=== PATIENT | female | born 1985 | race Hispanic/Latino ===

== ENCOUNTER 2017-11-17 23:15 | Inpatient (IN) | payer SELFPAY ==
[2017-11-17 23:16] VITALS: BP 115/63; PULSE 69; RESP 14; TEMP 36.5; O2SAT 98; BMI 29.2
[2017-11-18] VITALS (15 sets, daily range): BP systolic 107–130; BP diastolic 58–77; PULSE 55–87; RESP 15–18; TEMP 36.4–37.2; O2SAT 92–100; BMI 33.7
--- NOTE | 2017-11-18 | GALL_PTH ---
PATIENT: ASHLEE GOFF LOC: [facility]3 U#:[id number] AGE/SX: 32/F ROOM: [facility]314 RE11/18/[address]: Dr. Ludmila Ward MD : 1985 BED: 1 DIS: 11/20/2017 SPEC #: [id number] RECD: 11/19/17 14:37 STATUS: GLENN RELolis #: [id number] CHAU: 11/18/17 00:[address]: Te Adams DEPT: SURGICAL PATHOLOGY RECD BY: Ricki Thomason ENTERED: 11/19/17 14:37 SP TYPE: GALLBLADDE OTHR DR: Dr. Tasha Bustos, DO MD Dr. Kit Michelle MD Jodi Swihart, STANDARDS ENGINEER-C Tissues: Gallbladder, NOS Procedures: Surgery Specimen Level III Comments: @ Ordering doctor for SUIII edited from to @ by SANTIAGO at 11/19/17 1523 @ Submitting doctor edited from to @ by RGOOD at 11/19/17 1523 HEADER OPERATION: ERCP PRE-OP DIAGNOSIS: Obstructive jaundice; gallstone pancreatitis TISSUE SUBMITTED: Gallbladder MICROSCOPIC DIAGNOSIS Gallbladder: Chronic cholecystitis and cholelithiasis. SOFI:mary 11/22/17 MICROSCOPIC DESCRIPTION Slides are reviewed. GROSS DESCRIPTION Received is one container labeled with the patient's name and designated gallbladder. The specimen consists of a gallbladder measuring 13 cm in length and up to 4 cm in diameter. The external surface is pink-galindo, smooth and glistening for the most part. Focally it is granular, hemorrhagic and contains cautery artifact. The gallbladder contains a small amount of green-yellow mucoid bile and distended with multiple multifaceted greenish-yellow stones measuring in aggregate 9 x 8 x 3 cm and 0.3 to 1.5 in greatest dimension. The mucosa is bile-stained and without any mass lesions. The gallbladder wall measures up to 0.2 cm in thickness. Systems Development Consultant sections from the gallbladder and the cystic duct are submitted in one cassette. / SOFI:mary 11/19/17 TC:3 CPT: 76358
[2017-11-18 00:20] LABS: Bacteria 0 SEEN /hpf (None Seen); Mucous, Urine 0 SEEN /hpf (<or=2+); White Blood Cells 0 SEEN /hpf (0-5)
[2017-11-18] MEDS: Ketorolac 30 MG/ML Syringe IV (00:27)
[2017-11-18] MEDS: 0.9% Normal Saline 1,000 ML 1000 ML IV (00:27)
[2017-11-18 00:28] LABS: Absolute Lymphocyte Count 1.19 X10^3/ul (0.83-4.51); Absolute Neutrophil Count 9.9 X10^3/uL (2.0-7.7); Basophil# 0.02 X10^3/uL; Basophil% 0.2 % (0-1); Eosinophil# 0.03 X10^3/uL; Eosinophils% 0.3 % (0-5); Hematocrit 39.1 % (37-47); Hemoglobin 12.7 g/dl (12.0-15.0); Lymphocyte # 1.19 X10^3/ul (4.0); Mean Corp Hgb Conc 32.5 g/gl (32-36); Mean Corpuscular Hgb 24.7 pg (27.0-32.0); Mean Corpuscular Volume 75.9 fL (81-99); Mean Platelet Vol. 9.7 fl (6.2-12.0); Monocyte# 0.74 X10^3/uL; Monocyte% 6.2 % (0-10); Neutrophil # 9.87 X10^3/uL (2.7-7.7); Platelet Count 348 K/mm3 (150-450); RBC Distribution Width SD 42.8 fl (35.1-43.9); Red Blood Count 5.15 M/mm3 (4.2-5.4); White Blood Count 11.9 K/mm3 (4.4-11.0)
[2017-11-18] MEDS: proMETHazine 25 MG/ML Syringe 12.5 MG IV (00:28)
[2017-11-18 00:34] LABS: POSITIVE COUNT NO; POSITIVE DIFFERENTIAL NO; POSITIVE MORPHOLOGY NO
[2017-11-18 00:35] LABS: Internal QC Validated? YES +Cl - CLEAR BKGD; Pregnancy, Urine Negative Negative
[2017-11-18 00:42] LABS: Color, Urine Amber (Yellow); Glucose, Dipstick NEGATIVE (Normal); Ketone-Dipstick Negative (Negative); Leukocyte Esterase-Dipstick 25 /ul (Negative); Nitrite-Dipstick Negative (Negative); Occult Blood-Urine 250 /ul (Negative); Protein-Dipstick 30 mg/dl (Negative); Urine Bilirubin Dipstick Negative (Negative); Urine Clarity Sl Cldy (Clear); Urine Urobilinogen 1 mg/dl (Normal)
[2017-11-18 00:43] LABS: Red Blood Cells-Urine 50-100 SEEN /hpf (0-5); Squamous Epithelial Cells - UA 10-25 SEEN /hpf (5-10)
[2017-11-18 00:57] LABS: AST(SGOT) 668 U/L (15-37); Alanine Aminotransfer ALT/SGPT 493 U/L (13-56); Albumin, Serum 4.1 g/dL (3.2-5.0); Alkaline Phosphatase 131 U/L (45-117); Anion Gap 7 (5-15); BUN 12 mg/dL (7-18); BUN/Creat Ratio 11.8 RATIO (10-20); Calcium,Total 9.3 mg/dL (8.5-10.1); Chloride 102 mmol/L (98-107); Creatinine, Serum 1.02 mg/dL (0.55-1.02); EST Glomerular Filtration Rate 67 mL/min (>60); Est Glom Filt Rate - Afr Amer 81 mL/min (>60); Estimated Creatinine Clearance 69.01 ml/min; Globulin 4.2 g/dL (2.2-4.2); Glucose 107 mg/dL (74-106); Lipase 23877 U/L (73-393); Potassium 3.4 mmol/L (3.5-5.1); Protein, Total 8.3 g/dL (6.4-8.2); Sodium Level 139 mmol/L (136-145)
--- NOTE | 2017-11-18 01:11 | CT_ITS ---
STUDY: CT ABDOMEN AND PELVIS WITH CONTRAST REASON FOR EXAM: Female, 32 years old. Abdomen pain RADIATION DOSAGE (If Supplied By Facility): CTDIvol = ( 15.09 ) mGy, DLP = ( 1100.84 ) mGycm TECHNIQUE: Transaxial images were obtained from the dome of the diaphragm to the symphysis pubis without oral contrast. 100 ml of Isovue 300 contrast was administered. Sagittal and coronal images were reconstructed. Individualized dose optimization techniques were used for this CT. COMPARISON: None. FINDINGS: The visualized lung bases Demonstrate dependent atelectasis is more prominent on the right side. The visualized portions of the heart are within normal limits. Normal liver. There are multiple gallstones. Normal spleen. Normal pancreas. Normal bilateral adrenal glands. Normal right kidney. Normal left kidney. Normal visualized stomach. Normal small intestine. Normal colon. The appendix is visualized and appears normal. Normal abdominal aorta. Normal inferior vena cava. Normal retroperitoneum. Normal urinary bladder. Normal abdominal wall. Normal osseous structures. CT/Abdomen/Pelvis W IV Cont ONLY IMPRESSION: Cholelithiasis. Electronically Signed: Tommy Hutchins MD at 2:10 EDT Tel , Service support ,
--- NOTE | 2017-11-18 03:19 | PCM.HP.STD ---
Problem List (1) Acute pancreatitis Status: Acute History of Present Illness Date of Admission: 11/18/17 Chief Complaint: Abdominal pain The patient is a 32 year old F obese female with no significant medical history otherwise who presented with excruciating pain in his epigastric region. His pain started a day before his admission. His pain was gradual in onset and progressed to the point that she could not tolerate any longer. The pain does not radiate. The pain is aggravated with activity and improved with rest. She tried [place] without any relief. She thinks she did not get any relief because she vomited. Associated with her symptoms is nausea and vomiting. At the Emergency department CT of the abdomen and pelvis scan obtained showed cholelithiasis. She had a severely elevated lipase. Also her liver enzymes were severely abnormal. Of note, patient is known Sinhala speaking and history was obtained from her boyfriend. Past Medical History Allergies No Known Allergies Allergy (Verified 11/17/17 23:20) Home Medications: Ambulatory Orders Medication Instructions Recorded NK [NK] 11/18/17 Surgical History: no surgical history Psychiatric History: No pertinent psych hx Lives: Spouse/ Significant Other Smoking Status: Never smoker Tobacco Use: Non-smoker Alcohol: None Drugs: None - *Family History Maternal History Items: No pertinent history Paternal History Items: No pertinent history Review of Systems Constitutional: Reports: Chills Eyes: Denies: Blurred vision, Pain HEENT: Denies: Head Aches, Sinus Congestion, Sinus Drainage Cardiovascular: Denies: Chest Pain, Palpitations Respiratory: Denies: Cough, Shortness of breath at rest, Sputum production Gastrointestinal: Reports: Abdominal Pain, Nausea, Vomiting Genitourinary: Denies: Dysuria Musculoskeletal: Denies: Joint Pain, Joint Tenderness Skin: Denies: Rash, Wounds Neurological: Denies: Numbness, Tingling, Focal weakness Psychiatric: Denies: Anxiety, Depression, Homicidal Ideations, Suicidal Ideations Hematologic/ Lymphatic: Denies: Easy Bruising, Easy Bleeding VTE Information - Inpt Only VTE Present on Admission: No VTE Mechan Device Prophylaxis: None VTE Pharm Prophylaxis ordered?: No Patient Problems: Active and Suspected Problems Acute pancreatitis (Acute) - Physical Exam General: Alert, Oriented x3, Cooperative HEENT: Atraumatic, PERRLA, EOMI, Normocephalic Neck: Supple, No JVD, Negative Carotid Bruits Lungs: Clear to auscultation, Normal air movement Cardiovascular: Regular rate, No murmurs Abdomen: Bowel Sounds Present, Soft, Tender Extremities: No edema, Capillary Refill Less than 3 Seconds Skin: No rashes, No breakdown Musculoskeletal: No Tenderness to Palpation of Joints or Extremities Neurological: Cranial nerves II-XII grossly intact Psych/Mental Status: Normal Affect, Appropriate Vital Signs Temp Pulse Resp BP Pulse Ox 97.7 F L 69 18 115/63 98 11/17/17 23:16 11/17/17 23:16 11/18/17 02:37 11/17/17 23:16 11/18/17 02:37 Oxygen Delivery Method Room Air Weight: 77.111 kg Body Mass Index (BMI) 29.2 Laboratory Tests Past 24 Hrs 11/17/17 11/17/17 11/17/17 23:44 23:44 23:44 WBC 11.9 H RBC 5.15 Hgb 12.7 Hct 39.1 MCV 75.9 L MCH 24.7 L MCHC 32.5 RDW 16.0 H RDW Differential 42.8 Plt Count 348 MPV 9.7 Immature Gran % (Auto) 0.300 Neut % (Auto) 83.0 H Lymph % (Auto) 10.0 L Culbers[place] % (Auto) 6.2 Eos % (Auto) 0.3 Baso % (Auto) 0.2 Absolute Neuts (auto) 9.9 H Absolute Lymphs (auto) 1.19 Total Counted Not Reportable Sodium 139 Potassium 3.4 L Chloride 102 Carbon Dioxide 30.0 Anion Gap 7 BUN 12 Creatinine 1.02 Estim Creat Clear Calc 69.01 Est GFR (MDRD) Af Amer 81 Est GFR (MDRD) Non-Af 67 BUN/Creatinine Ratio 11.8 Glucose 107 H Calcium 9.3 Total Bilirubin 1.50 H AST 668 H ALT 493 H Alkaline Phosphatase 131 H Total Protein 8.3 H Albumin 4.1 Globulin 4.2 Albumin/Globulin Ratio 1.0 Lipase 88139 H Urine Color Urine Clarity Urine pH Ur Specific Atlas Urine Protein Urine Glucose (UA) Urine Ketones Urine Occult Blood Urine Nitrite Urine Bilirubin Urine Urobilinogen Ur Leukocyte Esterase Urine RBC Urine WBC Ur Squamous Epith Cells Urine Bacteria Urine Mucus Urine Test Negative 11/17/17 23:44 WBC RBC Hgb Hct MCV MCH MCHC RDW RDW Differential Plt Count MPV Immature Gran % (Auto) Neut % (Auto) Lymph % (Auto) Culberson % (Auto) Eos % (Auto) Baso % (Auto) Absolute Neuts (auto) Absolute Lymphs (auto) Total Counted Sodium Potassium Chloride Carbon Dioxide Anion Gap BUN Creatinine Estim Creat Clear Calc Est GFR (MDRD) Af Amer Est GFR (MDRD) Non-Af BUN/Creatinine Ratio Glucose Calcium Total Bilirubin AST ALT Alkaline Phosphatase Total Protein Albumin Globulin Albumin/Globulin Ratio Lipase Urine Color Yolanda Urine Clarity Sl Cldy Urine pH 8.0 Ur Specific Atlas 1.010 Urine Protein 30 H Urine Glucose (UA) NEGATIVE Urine Ketones Negative Urine Occult Blood 250 H Urine Nitrite Negative Urine Bilirubin Negative Urine Urobilinogen 1 H Ur Leukocyte Esterase 25 H Urine RBC 50-100 SEEN Urine WBC 0 SEEN Ur Squamous Epith Cells 10-25 SEEN Urine Bacteria 0 SEEN Urine Mucus 0 SEEN Urine Test Assessment/Plan All Active Problems Acute pancreatitis (Acute) The patient is a 32 year old F obese female with no significant medical history otherwise who presented with excruciating epigastric pain; and laboratory and radiographic evidence pointing towards acute pancreatitis likely gallstone in origin. Acute pancreatitis Lipase 23,877 Status post IV normal saline and IV pain medication at emergency department Patient started on lactated Ringer's infusion. N.p.o. for now Although CT scan showed gallstones will obtain ultrasound of her gallbladder to evaluate the biliary tree especially as she has elevated liver enzymes. Morphine and Zofran as needed ED reported talking to General Surgery. General surgery is interested in following up. Will consult general surgery. Fasting lipids ordered. Hypokalemia Mild hypokalemia with potassium of 3.4. Will replace with 20 mEq of IV potassium. DVT prophylaxis Not indicated because patient is a low risk Ambulation. Code Visit Inpatient E&M: 36761 Init Hosp L2
--- NOTE | 2017-11-18 03:21 | ED.DCSUM_ITS ---
- ER Visit Summary Date of Service: 11/18/17 Chief Complaint: abdominal pain History of Present Illness: The patient is a 32 F who presents with abdominal pain. It began about 10-12 hours ago. She describes as pressure-like. It is diffuse throughout her entire abdomen. She has also had nausea and vomiting. No diarrhea. No urinary symptoms. She is currently on her menstrual period. Physical Examination: Afebrile vital signs within normal limits Moist mucous membranes Heart regular rate and rhythm Lungs are clear Abdomen soft nondistended she has diffuse nonfocal tenderness without guarding without rebound Test Results: Labs are notable for white blood cell count 11.9. Total bilirubin 1.5. Alkaline phosphatase 131. ALT 493. AST 668. Lipase 23,877. UA shows blood but she is on her menstrual period. is negative. CT of the abdomen and pelvis shows cholelithiasis. Emergency Department Course and Treatment: Laboratory studies were obtained which are notable for pancreatitis with a lipase of greater than 23,000. She has elevation of her transaminases and mild elevations of alkaline phosphatase and total bilirubin. CT was obtained which showed cholelithiasis which raises concern for gallstone pancreatitis. I did speak to Dr. Howard and surgery will see the patient in consult. She was treated here with IV fluids Toradol and Phenergan. On reevaluation her pain is controlled unless she is moving. She is sleeping comfortably. She was discussed with the hospitalist and admitted. Treatment Plan: [] Disposition: Admit Impression: Cholelithiasis Pancreatitis This note was generated with [employer] dictation software. It may contain incorrect words, spelling, and punctuation that were not noted in review of the chart prior to signing ED Disposition - Plan for ED Patient: Chief Complaint: Abd Pain Referrals: Farnaz Wray, INTERNATIONAL TRADE MANAGER-C [Primary Care Provider] -
[2017-11-18] MEDS: 0.9% Normal Saline 1,000 ML 999 ML IV (03:34)
--- NOTE | 2017-11-18 04:51 | US_ITS ---
STUDY: ABDOMINAL ULTRASOUND - RIGHT UPPER QUADRANT REASON FOR VISIT: Female, 32 years old. Pancreatitis. TECHNIQUE: Ultrasound evaluation of the right upper quadrant was performed with real-time and static murphy-scale imaging. TECHNICAL QUALITY: Adequate. COMPARISON: Comparison is made with prior CT scan of the abdomen done earlier in the day. FINDINGS: Liver: The liver measures 17 cm. There is increased echogenicity consistent with fatty infiltration. Focal fatty sparing is seen in the periportal region. The bile ducts are within normal limits. There is hepatic color flow. The direction of portal flow is hepatopetal. There is no demonstrated mass lesion. Gallbladder: Normal distended gallbladder. The gallbladder wall measures 2.0 mm. There is a negative sonographic Loyola's sign. There is no pericholecystic fluid. There are multiple echogenic structures within the gallbladder, consistent with multiple gallstones. Common Bile Duct (C.B.D.): The common bile duct measures 5.8 mm. Pancreas: Normal size of the head, body and tail of the pancreas. There is normal echogenicity of the pancreas. There is no demonstrated pancreatic mass or cyst. Right Kidney: Normal size of the right kidney. The right kidney measures 10.2 cm x 5.8 cm x 5.3 cm. Normal renal cortex. The right cortex measures 1.8 cm. There is no demonstrated renal mass or cyst. There is no right hydronephrosis. US/Gallbladder IMPRESSION: Fatty infiltration of the liver with focal fatty sparing. Multiple gallstones. Electronically Signed: Rudy Torres MD at 9:50 EDT Tel [phone], Service support ,
[2017-11-18] MEDS: Lactated Ringers 1,000 ML 200 ML IV ×2 (05:27→12:04)
[2017-11-18 06:58] LABS: Absolute Lymphocyte Count 1.59 X10^3/ul (0.83-4.51); Absolute Neutrophil Count 4.5 X10^3/uL (2.0-7.7); Basophil# 0.01 X10^3/uL; Basophil% 0.2 % (0-1); Eosinophil# 0.01 X10^3/uL; Eosinophils% 0.2 % (0-5); Hemoglobin 10.8 g/dl (12.0-15.0); Lymphocyte # 1.59 X10^3/ul (4.0); Lymphocyte % 24.1 % (19-41); Mean Corp Hgb Conc 31.8 g/gl (32-36); Mean Corpuscular Hgb 24.5 pg (27.0-32.0); Mean Corpuscular Volume 77.1 fL (81-99); Mean Platelet Vol. 9.5 fl (6.2-12.0); Monocyte# 0.43 X10^3/uL; Monocyte% 6.5 % (0-10); Neutrophil # 4.54 X10^3/uL (2.7-7.7); Neutrophil % 68.8 % (47-70); Platelet Count 307 K/mm3 (150-450); RBC Distribution Width CV 16.1 % (11.6-14.6); RBC Distribution Width SD 43.3 fl (35.1-43.9); Red Blood Count 4.41 M/mm3 (4.2-5.4); White Blood Count 6.6 K/mm3 (4.4-11.0)
--- NOTE | 2017-11-18 07:00 | PCM.PROGNOTE ---
Patient Problems: Active and Suspected Problems Acute pancreatitis (Acute) Gallstone pancreatitis (Acute) Obstructive jaundice (Acute) Subjective: Patient is a 32-year-old female with no significant past medical history on no medications chronically who presented to the emergency department at [facility] on 11/18/2017 complaining of abdominal pain with onset approximately 10-12 hours before coming to the emergency room. Admitting vital signs were temperature 97.9, pulse rate 69, blood pressure 115/63, respiratory rate 14 and she was 94-100% saturated on room air. White blood cell count was 11.9 with 83% neutrophils. Hemoglobin was 12.7 and the MCV is 75.9 with an RDW of 16. Platelets were within normal limits. Potassium was low at 3.4. BUN and creatinine 12 and 1.02 respectively. AST was 668, ALT was 493, total bilirubin was 1.5 and the alk phos was 131. Lipase was 23,877. CT scan of the abdomen and pelvis showed cholelithiasis. She was admitted to the hospitalist service and general surgery was consulted. She has been afebrile since admission. Vital signs are stable. White blood cell count today is 6.6 with an unremarkable differential. Hemoglobin has decreased to 10.8 with hydration. Potassium is now normal at 3.6. LFTs are increasing and the total bilirubin is 1.6 with an AST of 850, ALT of 700 and an alkaline phosphatase of 125. Lipase has decreased from 23,877-10,435 today. She is complaining primarily of left upper quadrant today. She denies back pain. She has not had an emesis but does have some nausea. 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 - Physical Exam General: Alert, Cooperative, - - she looks to be in pain and quite ill HEENT: Atraumatic, Normocephalic Oral: Moist Mucosa Neck: Supple, No Nodes, Trachea Midline Lungs: Clear to auscultation, Diminished - in the bases Cardiovascular: Regular rate, Regular Rhythm, Normal S1, Normal S2, No murmurs, No Gallop Abdomen: Soft, Non-Distended, Hypoactive Bowel Sounds, Tender Extremities: No clubbing, No cyanosis, No edema, No Calf Tenderness Skin: No rashes, No breakdown Neurological: Cranial nerves II-XII grossly intact, Neuro grossly intact Vital Signs Temp Pulse Resp BP Pulse Ox 97.7 F L 67 15 130/65 H 100 11/17/17 23:16 11/18/17 04:34 11/18/17 04:34 11/18/17 03:30 11/18/17 04:34 Oxygen Delivery Method Room Air Weight: 196 lb 3.382 oz Body Mass Index (BMI) 33.7 Laboratory Tests Past 24 Hrs 11/18/17 11/18/17 06:24 06:24 WBC Pending RBC Pending Hgb Pending Hct Pending MCV Pending MCH Pending MCHC Pending RDW Pending RDW Differential Pending Plt Count Pending Neut % (Auto) Pending Absolute Neuts (auto) Pending Total Counted Pending Sodium Pending Potassium Pending Chloride Pending Carbon Dioxide Pending Anion Gap Pending BUN Pending Creatinine Pending Est GFR (MDRD) Af Amer Pending Est GFR (MDRD) Non-Af Pending BUN/Creatinine Ratio Pending Glucose Pending Calcium Pending Triglycerides Pending Cholesterol Pending LDL Cholesterol Pending VLDL Cholesterol Pending HDL Cholesterol Pending Medical Necessity - Tobacco Use Smoking Status: Never smoker Tobacco Use: Non-smoker Assessment/Plan All Active Problems Acute pancreatitis (Acute) Gallstone pancreatitis (Acute) Obstructive jaundice (Acute) Impressions 1. Gallstone pancreatitis with cholangitis and suspected choledocholithiasis. 2. Obesity Discussed with Dr. Howard. The plan is for her to go to surgery today with Dr. Adams for an ERCP and to have laparoscopic cholecystectomy with Dr. Howard on 11/19/2017. In light of cholangitis I have started Zosyn. Repeat lab in the a.m.
[2017-11-18 07:09] LABS: POSITIVE COUNT NO; POSITIVE DIFFERENTIAL NO; POSITIVE MORPHOLOGY NO
--- NOTE | 2017-11-18 07:12 | PN_ITS ---
Patient Problems: Active and Suspected Problems Acute pancreatitis (Acute) Gallstone pancreatitis (Acute) Obstructive jaundice (Acute) Subjective: Patient is a 32-year-old female with no significant past medical history on no medications chronically who presented to the emergency department at [facility] on 11/18/2017 complaining of abdominal pain with onset approximately 10-12 hours before coming to the emergency room. Admitting vital signs were temperature 97.9, pulse rate 69, blood pressure 115/63, respiratory rate 14 and she was 94-100% saturated on room air. White blood cell count was 11.9 with 83% neutrophils. Hemoglobin was 12.7 and the MCV is 75.9 with an RDW of 16. Platelets were within normal limits. Potassium was low at 3.4. BUN and creatinine 12 and 1.02 respectively. AST was 668, ALT was 493, total bilirubin was 1.5 and the alk phos was 131. Lipase was 23,877. CT scan of the abdomen and pelvis showed cholelithiasis. She was admitted to the hospitalist service and general surgery was consulted. She has been afebrile since admission. Vital signs are stable. White blood cell count today is 6.6 with an unremarkable differential. Hemoglobin has decreased to 10.8 with hydration. Potassium is now normal at 3.6. LFTs are increasing and the total bilirubin is 1.6 with an AST of 850, ALT of 700 and an alkaline phosphatase of 125. Lipase has decreased from 23,877-10, 435 today. She is complaining primarily of left upper quadrant today. She denies back pain. She has not had an emesis but does have some nausea. 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 - Physical Exam General: Alert, Cooperative, - - she looks to be in pain and quite ill HEENT: Atraumatic, Normocephalic Oral: Moist Mucosa Neck: Supple, No Nodes, Trachea Midline Lungs: Clear to auscultation, Diminished - in the bases Cardiovascular: Regular rate, Regular Rhythm, Normal S1, Normal S2, No murmurs, No Gallop Abdomen: Soft, Non-Distended, Hypoactive Bowel Sounds, Tender Extremities: No clubbing, No cyanosis, No edema, No Calf Tenderness Skin: No rashes, No breakdown Neurological: Cranial nerves II-XII grossly intact, Neuro grossly intact Vital Signs Temp Pulse Resp BP Pulse Ox 97.7 F L 67 15 130/65 H 100 11/17/17 23:16 11/18/17 04:34 11/18/17 04:34 11/18/17 03:30 11/18/17 04:34 Oxygen Delivery Method Room Air Weight: 196 lb 3.382 oz Body Mass Index (BMI) 33.7 Laboratory Tests Past 24 Hrs 11/18/17 11/18/17 06:24 06:24 WBC Pending RBC Pending Hgb Pending Hct Pending MCV Pending MCH Pending MCHC Pending RDW Pending RDW Differential Pending Plt Count Pending Neut % (Auto) Pending Absolute Neuts (auto) Pending Total Counted Pending Sodium Pending Potassium Pending Chloride Pending Carbon Dioxide Pending Anion Gap Pending BUN Pending Creatinine Pending Est GFR (MDRD) Af Amer Pending Est GFR (MDRD) Non-Af Pending BUN/Creatinine Ratio Pending Glucose Pending Calcium Pending Triglycerides Pending Cholesterol Pending LDL Cholesterol Pending VLDL Cholesterol Pending HDL Cholesterol Pending Medical Necessity - Tobacco Use Smoking Status: Never smoker Tobacco Use: Non-smoker Assessment/Plan All Active Problems Acute pancreatitis (Acute) Gallstone pancreatitis (Acute) Obstructive jaundice (Acute) Impressions 1. Gallstone pancreatitis with cholangitis and suspected choledocholithiasis. 2. Obesity Discussed with Dr. Howard. The plan is for her to go to surgery today with Dr. Adams for an ERCP and to have laparoscopic cholecystectomy with Dr. Howard on 11/19/2017. In light of cholangitis I have started Zosyn. Repeat lab in the a.m.
[2017-11-18 07:14] LABS: Anion Gap 8 (5-15); BUN 11 mg/dL (7-18); Calcium,Total 7.9 mg/dL (8.5-10.1); Chloride 107 mmol/L (98-107); Cholesterol 150 mg/dL (200); Creatinine, Serum 0.79 mg/dL (0.55-1.02); EST Glomerular Filtration Rate 91 mL/min (>60); Est Glom Filt Rate - Afr Amer 110 mL/min (>60); Glucose 103 mg/dL (74-106); High Density Lipoprotein 39 mg/dL; Potassium 3.6 mmol/L (3.5-5.1); Sodium Level 142 mmol/L (136-145); Triglycerides 89 mg/dL; Very Low Density Lipoprotein 18 mg/dL (5-40)
[2017-11-18] MEDS: 0.9% NaCl Peripheral Flush Adult/Peds IV ×2 (07:54→15:41)
[2017-11-18] MEDS: Morphine 2 MG/ML Syringe IV ×3 (07:54→20:43)
--- NOTE | 2017-11-18 08:33 | CON.PCM_ITS ---
Problem List (1) Acute pancreatitis Status: Acute Qualifiers: Pancreatitis type: biliary Reason for Consult Date of Consultation: 11/18/17 Reason for Consultation: Acute pancreatitis. Epigastric pain. History of Present Illness: The patient is a 32 year old F who presents with 1 day history of worsening epigastric pain, nausea, vomiting. Patient speaks Bulgarian only. Her translated our visit. He speaks fluent Croatian. Per , patient had a similar abdominal pain approximately 1 1/2 months ago. Discomfort resolved on its own and patient never sought treatment. Patient noted pain returned yesterday approximately 15 minutes after eating around 1300. She notes the pain was followed by nausea and vomiting. Patient denies change in bowel habits. She denies history of gallbladder disease. Patient denies previous abdominal surgeries. She has a 8 month old vaginally without complications during delivery. Patient denies previous myocardial infarction, stroke, blood clots. She denies being seen previously by a technical aid. She does not take any medication on a routine basis. Patient had a CT scan of the ab/pel which demonstrated cholelithiasis. Normal pancreas. Gallbladder ultrasound obtained today demonstrated multiple gallstones and liver infiltration of the liver. Normal pancreas. [place] [address]286 on admission, 11/17. Total bilirubin was 1.50, AST 668 , ALT 493, Alk Phos 131. Today, 11/18[place] [address]. Total bilirubin is 1.60, AST 850, ALT 700, Alk Phos 125. Past Medical History Allergies No Known Allergies Allergy (Verified 11/17/17 23:20) Home Medications: Ambulatory Orders Medication Instructions Recorded NK [NK] 11/18/17 Surgical History: no surgical history Psychiatric History: No pertinent psych hx SOCIAL SERVICES MANAGER History: No pertinent SOCIAL SERVICES MANAGER history Lives: Spouse/ Significant Other Smoking Status: Never smoker Tobacco Use: Non-smoker Alcohol: None Drugs: None - *Family History Maternal History Items: No pertinent history Paternal History Items: No pertinent history Review of Systems Constitutional: Reports: Anorexia, Malaise, Fatigue HEENT: Denies: Head Aches, Sinus Congestion, Sinus Drainage Cardiovascular: Denies: Chest Pain, Palpitations Respiratory: Reports: Shortness of Breath. Denies: Cough, Shortness of breath at rest, Sputum production Gastrointestinal: Reports: Abdominal Pain, Nausea, Vomiting. Denies: Constipation, Diarrhea, Hematemesis, Hematochezia, Melena Genitourinary: Reports: Dysuria, Urgency Musculoskeletal: Denies: Joint Pain, Joint Tenderness Skin: Denies: Rash, Wounds Neurological: Denies: Numbness, Tingling, Focal weakness Psychiatric: Denies: Anxiety, Depression, Homicidal Ideations, Suicidal Ideations Hematologic/ Lymphatic: Denies: Easy Bruising, Easy Bleeding Patient Problems: Active and Suspected Problems Acute pancreatitis (Acute) - Physical Exam General: Alert, Oriented x3, Cooperative, - - Speaks Bulgarian only HEENT: Atraumatic, PERRLA, EOMI, Normocephalic Neck: Supple, No JVD, Negative Carotid Bruits Lungs: Clear to auscultation, Normal air movement Cardiovascular: Regular rate, No murmurs Abdomen: Soft, Hypoactive Bowel Sounds, Distended - slightly, Tender - epigastric, LUQ, RUQ Extremities: No edema, Capillary Refill Less than 3 Seconds Skin: No rashes, No breakdown Musculoskeletal: No Tenderness to Palpation of Joints or Extremities Neurological: Neuro grossly intact Psych/Mental Status: Normal Affect, Appropriate Vital Signs Temp Pulse Resp BP Pulse Ox 97.7 F L 67 15 130/65 H 96 11/17/17 23:16 11/18/17 04:34 11/18/17 04:34 11/18/17 03:30 11/18/17 07:18 Oxygen Delivery Method Room Air Weight: 196 lb 3.382 oz Body Mass Index (BMI) 33.7 Intake and Output for Last 24 Hours 11/16/17 11/17/17 11/18/17 23:59 23:59 23:59 Intake Total 446 / 446 Balance 446 / 446 Laboratory Tests Past 24 Hrs 11/18/17 11/18/17 06:24 06:24 WBC 6.6 RBC 4.41 Hgb 10.8 L Hct 34.0 L MCV 77.1 L MCH 24.5 L MCHC 31.8 L RDW 16.1 H RDW Differential 43.3 Plt Count 307 MPV 9.5 Immature Gran % (Auto) 0.200 Neut % (Auto) 68.8 Lymph % (Auto) 24.1 [place] % (Auto) 6.5 Eos % (Auto) 0.2 Baso % (Auto) 0.2 Absolute Neuts (auto) 4.5 Absolute Lymphs (auto) 1.59 Total Counted Not Reportable Sodium 142 Potassium 3.6 Chloride 107 Carbon Dioxide 27.0 Anion Gap 8 BUN 11 Creatinine 0.79 Estim Creat Clear Calc 89.10 Est GFR (MDRD) Af Amer 110 Est GFR (MDRD) Non-Af 91 BUN/Creatinine Ratio 14.0 Glucose 103 Calcium 7.9 L Triglycerides 89 Cholesterol 150 LDL Cholesterol 93 VLDL Cholesterol 18 HDL Cholesterol 39 L Assessment/Plan All Active Problems Acute pancreatitis (Acute) I have been consulted in conjunction with Dr. Howard Impression: Acute pancreatitis. Cholelithiasis. Epigastric pain. Elevated lipase and liver enzymes. UTI Plan: Patient was discussed with Dr. Howard. Dr. Adams has also been asked to see the patient to perform an ERCP today. Dr. Howard will plan to perform a laparoscopic cholecystectomy. Dr. Howard explained the procedure details, risks and benefits of the procedure. Patient and his have had the opportunity to ask and have questions answered. Patient verbally understands and agrees with the plan. She desires to proceed with the proposed procedures. Thank you for allowing me to participate in this patient's care. My recommendations will be available via electronic medical records. Code Visit Office Visits / Consults: [id number] IP Consult L3
[2017-11-18] MEDS: Piperacil/Tazobactam 3.375 GM/50 ML ML IV ×3 (08:45→21:52)
[2017-11-18 09:17] LABS: AST(SGOT) 850 U/L (15-37); Alanine Aminotransfer ALT/SGPT 700 U/L (13-56); Albumin, Serum 3.2 g/dL (3.2-5.0); Alkaline Phosphatase 125 U/L (45-117); Globulin 3.5 g/dL (2.2-4.2); Lipase 10435 U/L (73-393); Protein, Total 6.7 g/dL (6.4-8.2)
--- NOTE | 2017-11-18 09:58 | PN.SURG_ITS ---
Patient Problems: Active and Suspected Problems Acute pancreatitis (Acute) Subjective: Patient is having some improvement with her abdominal pain. She does report some left upper quadrant abdominal pain at this time. - Physical Exam General: Alert, Oriented x3, Cooperative, No apparent distress HEENT: Atraumatic Lungs: Normal air movement Cardiovascular: Regular rate, Regular Rhythm Abdomen: Soft, Non-Distended, Tender - Tender in the epigastric and left upper quadrant Neurological: Cranial nerves II-XII grossly intact Vital Signs Temp Pulse Resp BP Pulse Ox 97.6 F L 67 16 117/58 L 97 11/18/17 07:50 11/18/17 07:50 11/18/17 07:50 11/18/17 07:50 11/18/17 07:50 Oxygen Delivery Method Room Air Weight: 196 lb 3.382 oz Body Mass Index (BMI) 33.7 Intake and Output for Last 24 Hours 11/16/17 11/17/17 11/18/17 23:59 23:59 23:59 Intake Total 446 / 446 Balance 446 / 446 Laboratory Tests Past 24 Hrs 11/18/17 11/18/17 11/18/17 06:24 06:24 06:24 WBC 6.6 RBC 4.41 Hgb 10.8 L Hct 34.0 L MCV 77.1 L MCH 24.5 L MCHC 31.8 L RDW 16.1 H RDW Differential 43.3 Plt Count 307 MPV 9.5 Immature Gran % (Auto) 0.200 Neut % (Auto) 68.8 Lymph % (Auto) 24.1 [place] % (Auto) 6.5 Eos % (Auto) 0.2 Baso % (Auto) 0.2 Absolute Neuts (auto) 4.5 Absolute Lymphs (auto) 1.59 Total Counted Not Reportable Sodium 142 Potassium 3.6 Chloride 107 Carbon Dioxide 27.0 Anion Gap 8 BUN 11 Creatinine 0.79 Estim Creat Clear Calc 89.10 Est GFR (MDRD) Af Amer 110 Est GFR (MDRD) Non-Af 91 BUN/Creatinine Ratio 14.0 Glucose 103 Calcium 7.9 L Total Bilirubin 1.60 H Direct Bilirubin 1.20 H AST 850 H ALT 700 H Alkaline Phosphatase 125 H Total Protein 6.7 Albumin 3.2 Globulin 3.5 Triglycerides 89 Cholesterol 150 LDL Cholesterol 93 VLDL Cholesterol 18 HDL Cholesterol 39 L Lipase 39950 H Clinical Impression(s) from Imaging Studies Abdomen/Pelvis CT 11/18/17 01:11 IMPRESSION: Cholelithiasis. Electronically Signed: Tommy Hutchins MD at 2:10 EDT Tel , Service support , Gallbladder Ultrasound 11/18/17 04:51 IMPRESSION: Fatty infiltration of the liver with focal fatty sparing. Multiple gallstones. Electronically Signed: Rudy Torres MD at 9:50 EDT Tel [phone], Service support , Medical Necessity - Tobacco Use Smoking Status: Never smoker Tobacco Use: Non-smoker Assessment/Plan All Active Problems Acute pancreatitis (Acute) 32-year-old female with acute pancreatitis, likely choledocholithiasis 1. Patient has gallstone pancreatitis and likely choledocholithiasis. The patient's liver enzymes have increased from her last draw. I do recommend ERCP for ductal clearance before laparoscopic cholecystectomy. 2. I discussed ERCP in detail with the patient. I discussed the risks including but not limited to bleeding, infection, perforation of the bile duct or bowels, worsening of the pancreatitis. I also discussed the possibility of having to place a stent. The patient understands and is willing to proceed. Te Adams MD Pager: [facility] [address] [place] [address], [address] [place] [address] Office:
--- NOTE | 2017-11-18 11:05 | RAD_ITS ---
STUDY: ERCP. REASON FOR EXAM: Female, 32 years old. History of acute pancreatitis. FLUOROSCOPY TIME (if supplied): (5:19) minutes/seconds TECHNIQUE: An ERCP was performed by the surgeon. Imaging was provided. COMPARISON: None. FINDINGS: There is evidence of gallstones. Contrast is seen within the common bile duct. A biliary stent was placed. RAD/ERCP Biliary Only IMPRESSION: Gallstones. Placement of a biliary stent. Electronically Signed: Rudy Torres MD at 14:53 EDT Tel [phone], Service support ,
--- NOTE | 2017-11-18 11:43 | CASEMGMT ---
CM INITIAL ASSESSMENT: Patient asleep at this time. Patient's boyfriend is at bedside and answers questions. Home: Patient lives in a two story home, on the upstairs floor. She lives with her boyfriend and child. HHS/Aides: Denies. Patient is independent. She sometimes drives. DME: Denies Home Oxygen: Denies Pharmacy: [facility] in [facility] Advance Directives: Denies PCP: Farnaz Wray at [facility] Specialists: Denies Patient does not have insurance at this time. She has completed Medicaid application at bedside. Her boyfriend states that she just needs to sign it. Social work notified and will follow-up with patient. DC Plan: Home, no needs anticipated. CM will continue to follow for safe and effective discharge planning.
--- NOTE | 2017-11-18 12:22 | EKG12_ITS ---
Test Reason : Blood Pressure : / mmHG Vent. Rate : 071 BPM Atrial Rate : 071 BPM P-R Int : 152 ms QRS Dur : 102 ms QT Int : 404 ms P-R-T Axes : 059 084 051 degrees QTc Int : 439 ms Normal sinus rhythm Normal ECG Confirmed by WALLACE SCHAEFER, PATTI ([id number]), editorial specialist DOE LUJAN ([id number]) on 11/26/2017 1:53:57 PM Referred By: KITE Confirmed By:PATTI GONSALEZ MD
--- NOTE | 2017-11-18 12:45 | NURSING ---
REPORT CALLED TO [facility] FOR ERCP.
--- NOTE | 2017-11-18 13:28 | CASEMGMT ---
Social Work Note RN CHRIS Lopez updated this worker that pt is self pay and has a Medicaid Application in her room. ALLEN placed a call to Celi in PFS. Celi states that she saw pt this morning and provided pt and her boyfriend with Medicaid Application. Celi states that pt has to sign the Medicaid Application and she will be in to see pt later this afternoon to get completed Medicaid Application. ALLEN attempted to see pt to follow up on self pay status and to provide resources to pt. Pt currently off floor. ALLEN will follow up with pt later today as time allows. Debi Ashraf NANOTECHNOLOGY ENGINEERING TECHNOLOGIST, VICTIM ADVOCATE
--- NOTE | 2017-11-18 14:19 | PCM.OPRPT ---
Problem List (1) Gallstone pancreatitis Status: Acute (2) Obstructive jaundice Status: Acute Report of Operation Date of Procedure: 11/18/17 Pre-Operative Diagnosis: Gallstone pancreatitis and obstructive jaundice Post-Operative Diagnosis: Same Surgery/Procedure Performed:: ERCP with sphincterotomy and stent placement Specimen's removed: None Description of Procedure: After describing the risks of the procedure as well as the procedure in detail informed consent was obtained. Patient was brought to the operating room and general anesthesia was induced. The patient was then placed in a semi-prone position. Next, the side-viewing endoscope was placed into the mouth and down into the stomach and advanced into the duodenum. The ampulla was located. There was no bile in the stomach or duodenum. A sphinctertome was used to cannulate the common bile duct and location was confirmed on fluoroscopy. The guidewire was placed in the common bile duct and using sphincterotome and electrocautery a sphincterotomy was performed. Hemostasis was good. Next the sphincterotome was removed leaving the guidewire in the common bile duct. A balloon was then introduced over the guidewire and the common bile duct and several sweeps were performed. There appeared to be a small filling defect in the distal common bile duct. The trapezoid basket was placed into the common bile duct and several sweeps were performed but no stone was removed. As there appeared to be an obstruction at the beginning of the case but I was not able to remove an obvious stone I decided to place a stent. I placed a 7 Turkish 7 cm stent over the guidewire and into the common bile duct and this was deployed under fluoroscopy. There is good flow of bile through the stent at the end of the case. The guidewire was removed. The side-viewing scope was then withdrawn back into the stomach and the stomach was suctioned. Next, the scope was removed. The patient was taken to PACU in stable condition. The patient tolerated the procedure well.
--- NOTE | 2017-11-18 14:23 | PN_ITS ---
Progress Note I performed an ERCP on the patient. There was no flow of bile into the duodenum or stomach at the beginning the case. During the cholangiogram is unsure if there was a small filling defect or if this was a bubble in the common bile duct. I performed several balloon sweeps and several trapezoid basket sweeps but an obvious stone was not removed. As I was not able to see an obvious stone being removed and I do believe the duct was obstructed at the beginning of the case I decided to place a stent. I placed a 7 cm x 7 Uzbek stent in the common bile duct. I plan to allow the patient had clears overnight and make her n.p.o. after midnight. Dr. Howard plans for laparoscopic cholecystectomy tomorrow. I will bring the patient back in 4-6 weeks for a follow-up ERCP with stent removal and recheck of her duct for any stones. Te Adams MD Pager: [facility] [address] [place] [address] [address] [place] [address] Office:
--- NOTE | 2017-11-18 15:16 | CASEMGMT ---
Social Work Note SW once again attempted to see pt. Pt still off floor for procedure. Pt has guest in room at this time but is soundly sleeping. SW left on pt's table HCAP application, [place] [id number], [facility] clinic, and prescription assistance information. SW will check back with pt tomorrow to review resources available for pt. Debi Ashraf SIGN LANGUAGE INTERPRETER, SUPERINTENDENT OPERATING
[2017-11-18] MEDS: BENZOCAINE/MENTHOL 1 LOZENGE MUCOUS MEM (22:37)
[2017-11-19] VITALS (15 sets, daily range): BP systolic 118–143; BP diastolic 70–85; PULSE 50–65; RESP 16–18; TEMP 36.5–37.7; O2SAT 88–99; BMI 33.7
[2017-11-19] MEDS: Morphine 2 MG/ML Syringe IV ×4 (00:20→22:11)
[2017-11-19] MEDS: proMETHazine 25 MG/ML Syringe 12.5 MG IV (02:05)
[2017-11-19] MEDS: Piperacil/Tazobactam 3.375 GM/50 ML ML IV ×3 (06:09→22:11)
[2017-11-19 06:49] LABS: Absolute Lymphocyte Count 1.79 X10^3/ul (0.83-4.51); Absolute Neutrophil Count 4.6 X10^3/uL (2.0-7.7); Basophil# 0.01 X10^3/uL; Basophil% 0.1 % (0-1); Eosinophil# 0.05 X10^3/uL; Eosinophils% 0.7 % (0-5); Hematocrit 32.6 % (37-47); Hemoglobin 10.3 g/dl (12.0-15.0); Lymphocyte # 1.79 X10^3/ul (4.0); Lymphocyte % 26.6 % (19-41); Mean Corp Hgb Conc 31.6 g/gl (32-36); Mean Corpuscular Hgb 24.7 pg (27.0-32.0); Mean Corpuscular Volume 78.2 fL (81-99); Mean Platelet Vol. 9.7 fl (6.2-12.0); Monocyte# 0.27 X10^3/uL; Neutrophil # 4.59 X10^3/uL (2.7-7.7); Neutrophil % 68.5 % (47-70); Platelet Count 269 K/mm3 (150-450); RBC Distribution Width CV 16.9 % (11.6-14.6); RBC Distribution Width SD 46.9 fl (35.1-43.9); Red Blood Count 4.17 M/mm3 (4.2-5.4); White Blood Count 6.7 K/mm3 (4.4-11.0)
[2017-11-19 06:51] LABS: POSITIVE COUNT NO; POSITIVE DIFFERENTIAL NO; POSITIVE MORPHOLOGY NO
[2017-11-19 07:06] LABS: ALB/GLOB Ratio 0.8 RATIO (0.9-2.4); AST(SGOT) 441 U/L (15-37); Alanine Aminotransfer ALT/SGPT 729 U/L (13-56); Albumin, Serum 2.8 g/dL (3.2-5.0); Alkaline Phosphatase 131 U/L (45-117); Anion Gap 7 (5-15); BUN 10 mg/dL (7-18); BUN/Creat Ratio 14.2 RATIO (10-20); Calcium,Total 7.5 mg/dL (8.5-10.1); Chloride 111 mmol/L (98-107); EST Glomerular Filtration Rate 103 mL/min (>60); Est Glom Filt Rate - Afr Amer 125 mL/min (>60); Estimated Creatinine Clearance 100.55 ml/min; Globulin 3.3 g/dL (2.2-4.2); Glucose 88 mg/dL (74-106); Potassium 3.6 mmol/L (3.5-5.1); Protein, Total 6.1 g/dL (6.4-8.2); Sodium Level 141 mmol/L (136-145)
--- NOTE | 2017-11-19 08:31 | NURSING ---
REPORT CALLED TO JENNIFER PASTRANA IN [facility] READY FOR TRANSPORT VIA BED. FAMILY AT BEDSIDE.
--- NOTE | 2017-11-19 09:56 | PCM.OPRPT ---
Problem List (1) Gallstone pancreatitis Status: Acute Report of Operation Date of Procedure: 11/18/17 Pre-Operative Diagnosis: Gallstone pancreatitis and obstructive jaundice Post-Operative Diagnosis: Same Surgery/Procedure Performed:: Laparoscopic cholecystectomy Type of Anesthesia:: General Anesthesiologist: Khari Garza Specimen's removed: Gallbladder Description of Procedure: Patient was brought into the operating room placed in supine position under excellent general trach intubation the abdomen was sterilely prepped draped in usual fashion. Local was injected intraumbilically a curvilinear incision was made dissection was carried down the fascia the fascia grasped with Schuyler varies needle was placed inside the abdomen the abdomen was insufflated 15 torr. A 10/12 trocar was placed without difficulty. Patient placed in the head up and rotated to the left a subxiphoid #5 trocar was placed. Inferior to this another #5 trocar was placed and laterally a #5 trocar was placed. These were all lysed under direct visualization without injury to underlying structures. Fundus of the gallbladder was grasped retracted in cephalad direction. Cystic artery was anterior I dissected it free place hemoclips proximal and distally ligated the artery deliver the cystic duct from a significant amount of edema place hemoclips proximal and distally ligated the duct to the liver the gallbladder from the liver bed with use of electrocautery there was one small posterior cystic branch of the artery which I clipped and I had excellent hemostasis. Placed a specimen specimen bag delivered through the umbilical port without difficulty. Irrigated the right upper quadrant good hemostasis was noted. The trochars under direct visualization good hemostasis was noted. Close the fascia the umbilical port with a running suture of 0 Vicryl. Skin incisions were closed with a particular stitches of 4-0 Monocryl. Steri-Strips are applied sterile dressings were applied and the patient tolerated the procedure well. - Admit VTE Documentation VTE Present on Admission: No VTE Mechan Device Prophylaxis: SCD's VTE Pharm Prophylaxis ordered?: No Reason prophylaxis not ordered:: Treatment Not Indicated
--- NOTE | 2017-11-19 10:32 | PCM.PROGNOTE ---
Patient Problems: Active and Suspected Problems Acute pancreatitis (Acute) Gallstone pancreatitis (Acute) Obstructive jaundice (Acute) Subjective: Patient is a 32-year-old female with no significant past medical history on no medications chronically who presented to the emergency department at [facility] on 11/18/2017 complaining of abdominal pain with onset approximately 10-12 hours before coming to the emergency room. She was diagnosed with gallstone pancreatitis and admitted to the hospital. LFTs were abnormal and cholangitis secondary to probable choledocholithiasis was suspected. She was started on Zosyn. On 11/18/2017 she had an ERCP with sphincterotomy by Dr. Adams however no stone was obtained and he placed a stent. She was taken to surgery on 11/19/2017 for a laparoscopic cholecystectomy by Dr. Howard. Afebrile since admission. Vital signs stable. White blood cell count today is 6.7 with an unremarkable differential. Hemoglobin is 10.3 with an MCV of 78.2 and an RDW of 16.9. Electrolytes, BUN and creatinine are within normal. Bilirubin is within normal limits today however the AST, ALT and alkaline phosphatase remain elevated. Continues to c/o pain worse on the left side. Objective: PHYSICAL EXAM: GENERAL: alert, oriented X 3, Cooperative, still looks ill and in pain ORAL: moist mucosa, no mucosal lesions NECK: No JVD, supple, trachea midline LUNGS: CTA, symmetric chest expansion....diminished in the bases because will not take deep breaths HEART: RRR, Normal S1 and S2, no rub, no gallop ABDOMEN: soft, tender in the upper abd BL, ND, BS present but hypoactive, no guarding with palpation EXTREMITIES: no edema, no cyanosis, no calf tenderness SKIN: No rashes, no breakdown NEUROLOGIC: no focal neurologic deficits PSYCH: appropriate, normal affect, pleasant - Physical Exam Vital Signs Temp Pulse Resp BP Pulse Ox 98.3 F 62 16 125/70 H 99 11/19/17 08:17 11/19/17 08:17 11/19/17 08:17 11/19/17 08:17 11/19/17 08:17 Oxygen Flow Rate (L/min) 2 Oxygen Delivery Method Nasal Cannula Weight: 196 lb 3.382 oz Body Mass Index (BMI) 33.7 Intake and Output for Last 24 Hours 11/17/17 11/18/17 11/19/17 23:59 23:59 23:59 Intake Total 2640 / 2640 1982 Output Total 1200 / 1200 600 / 600 Balance 1440 / 1440 1383 / 1383 Laboratory Tests Past 24 Hrs 11/19/17 11/19/17 05:55 05:55 WBC 6.7 RBC 4.17 L Hgb 10.3 L Hct 32.6 L MCV 78.2 L MCH 24.7 L MCHC 31.6 L RDW 16.9 H RDW Differential 46.9 H Plt Count 269 MPV 9.7 Immature Gran % (Auto) 0.100 Neut % (Auto) 68.5 Lymph % (Auto) 26.6 [place] % (Auto) 4.0 Eos % (Auto) 0.7 Baso % (Auto) 0.1 Absolute Neuts (auto) 4.6 Absolute Lymphs (auto) 1.79 Total Counted Not Reportable Sodium 141 Potassium 3.6 Chloride 111 H Carbon Dioxide 23.0 Anion Gap 7 BUN 10 Creatinine 0.70 Estim Creat Clear Calc 100.55 Est GFR (MDRD) Af Amer 125 Est GFR (MDRD) Non-Af 103 BUN/Creatinine Ratio 14.2 Glucose 88 Calcium 7.5 L Total Bilirubin 0.90 AST 441 H ALT 729 H Alkaline Phosphatase 131 H Total Protein 6.1 L Albumin 2.8 L Globulin 3.3 Albumin/Globulin Ratio 0.8 L Medical Necessity - Tobacco Use Smoking Status: Never smoker Tobacco Use: Non-smoker Assessment/Plan All Active Problems Acute pancreatitis (Acute) Gallstone pancreatitis (Acute) Obstructive jaundice (Acute) Impressions 1. Gallstone pancreatitis with cholangitis and suspected choledocholithiasis. No stone on ERCP but a stent was placed 2. Obesity 3. Microcytosis with an increased RDW - suspect iron deficiency Start an iron supplement at DC Continue Zosyn Recheck the lab in the AM Code Visit Inpatient E&M: 39196 Subs Hosp L2
[2017-11-19] MEDS: Bupivacaine Mpf 0.5% 30 ML VIAL (10:39)
[2017-11-19] MEDS: 0.9% NaCl Peripheral Flush Adult/Peds IV ×2 (15:15→22:12)
[2017-11-19] MEDS: BENZOCAINE/MENTHOL 1 LOZENGE MUCOUS MEM (15:15)
[2017-11-20 02:20] VITALS: BP 123/67; PULSE 55; RESP 18; TEMP 36.9; O2SAT 94
[2017-11-20] MEDS: Piperacil/Tazobactam 3.375 GM/50 ML ML IV (06:08)
[2017-11-20 07:36] LABS: Absolute Lymphocyte Count 2.14 X10^3/ul (0.83-4.51); Absolute Neutrophil Count 3.7 X10^3/uL (2.0-7.7); Basophil# 0.01 X10^3/uL; Basophil% 0.2 % (0-1); Eosinophil# 0.01 X10^3/uL; Eosinophils% 0.2 % (0-5); Hematocrit 31.9 % (37-47); Lymphocyte # 2.14 X10^3/ul (4.0); Mean Corp Hgb Conc 31.3 g/gl (32-36); Mean Corpuscular Hgb 24.4 pg (27.0-32.0); Monocyte# 0.39 X10^3/uL; Monocyte% 6.2 % (0-10); Neutrophil # 3.73 X10^3/uL (2.7-7.7); Neutrophil % 59.2 % (47-70); Platelet Count 278 K/mm3 (150-450); RBC Distribution Width CV 17.1 % (11.6-14.6); RBC Distribution Width SD 47.2 fl (35.1-43.9); Red Blood Count 4.09 M/mm3 (4.2-5.4); White Blood Count 6.3 K/mm3 (4.4-11.0)
[2017-11-20 07:40] LABS: POSITIVE COUNT NO; POSITIVE DIFFERENTIAL NO; POSITIVE MORPHOLOGY NO
[2017-11-20 07:47] LABS: ALB/GLOB Ratio 0.8 RATIO (0.9-2.4); AST(SGOT) 123 U/L (15-37); Alanine Aminotransfer ALT/SGPT 463 U/L (13-56); Albumin, Serum 2.7 g/dL (3.2-5.0); Alkaline Phosphatase 110 U/L (45-117); Anion Gap 8 (5-15); BUN 8 mg/dL (7-18); BUN/Creat Ratio 12.6 RATIO (10-20); Calcium,Total 7.7 mg/dL (8.5-10.1); Chloride 111 mmol/L (98-107); Creatinine, Serum 0.63 mg/dL (0.55-1.02); EST Glomerular Filtration Rate 117 mL/min (>60); Est Glom Filt Rate - Afr Amer 141 mL/min (>60); Estimated Creatinine Clearance 111.73 ml/min; Globulin 3.2 g/dL (2.2-4.2); Glucose 99 mg/dL (74-106); Lipase 378 U/L (73-393); Magnesium 1.9 mg/dL (1.6-2.6); Phosphorus 2.3 mg/dL (2.5-4.9); Potassium 3.9 mmol/L (3.5-5.1); Protein, Total 5.9 g/dL (6.4-8.2); Sodium Level 144 mmol/L (136-145)
[2017-11-20 08:20] VITALS: BP 120/75; PULSE 62; RESP 18; TEMP 37; O2SAT 95
--- NOTE | 2017-11-20 10:40 | DCINST_ITS ---
Discharge Diet: Light diet - advance as tolerated Discharge Activity: May Not Drive - for 2-3 days or while taking narcotic pain medications., - - Do not drive, work heavy equipment or sign legal documents for 24 hours. May shower in (days): 1 - with the bandage in place. Additional Activity Instructions:: Pain medication may cause nausea. You should typically eat light foods as you take your pain medications. Pain medication may also cause constipation. If this is a problem for you, please discuss with your doctor. Call your doctor if your incision/area has: Continuous Slow Oozing, Sudden Increased Bleeding, Increased Pain/ Swelling, Increased Redness, Foul Smelling Discharge Call your doctor if you observe: Fever of 101 or Higher Suture Line Care: Avoid Pulling/Pushing, Avoid Pinching/Bending Additional Dressing/Incision Instructions:: Leave operative bandaids on for 2 days. When you remove dressing, leave Steri-Strips on until your follow-up appointment, or until the Steri-Strips fall off on their own. Allergies/Adverse Reactions: Allergies No Known Allergies Allergy (Verified 11/17/17 23:20) Medications to take at Discharge NK [NK] 11/18/17 Primary Care Physician: Farnaz Wray NP-C [Primary Care Provider] - Test Results: Test results from this visit will be discussed in further detail at your follow- up appointment, if applicable. Please Follow Up With: Kumar Howard MD - Please call [phone] to schedule an appointment. When: 7 days after your surgery.
--- NOTE | 2017-11-20 14:34 | PCM.DC.SUM ---
Discharge Date and Diagnosis - Problem List Patient Problems: Active and Suspected Problems Acute pancreatitis (Acute) Gallstone pancreatitis (Acute) Obstructive jaundice (Acute) Date of Admission: 11/18/17 Date of Discharge: 11/20/17 - Primary Discharge Diagnosis Active and Suspected Problems Acute pancreatitis (Acute) Gallstone pancreatitis (Acute) Obstructive jaundice (Acute) Hospital Course and Treatment Imaging Results: Diagnostic Data Abdomen/Pelvis CT 11/18/17 01:11 IMPRESSION: Cholelithiasis. Electronically Signed: Tommy Hutchins MD at 2:10 EDT Tel , Service support , Gallbladder Ultrasound 11/18/17 04:51 IMPRESSION: Fatty infiltration of the liver with focal fatty sparing. Multiple gallstones. Electronically Signed: Rudy Torres MD at 9:50 EDT Tel [phone], Service support , ERCP X-Ray 11/18/17 11:05 IMPRESSION: Gallstones. Placement of a biliary stent. Electronically Signed: Rudy Torres MD at 14:53 EDT Tel [phone], Service support , Laboratory Tests Past 24 Hrs 11/20/17 11/20/17 06:43 06:43 WBC 6.3 RBC 4.09 L Hgb 10.0 L Hct 31.9 L MCV 78.0 L MCH 24.4 L MCHC 31.3 L RDW 17.1 H RDW Differential 47.2 H Plt Count 278 MPV 10.0 Immature Gran % (Auto) 0.200 Neut % (Auto) 59.2 Lymph % (Auto) 34.0 [place] % (Auto) 6.2 Eos % (Auto) 0.2 Baso % (Auto) 0.2 Absolute Neuts (auto) 3.7 Absolute Lymphs (auto) 2.14 Total Counted Not Reportable Sodium 144 Potassium 3.9 Chloride 111 H Carbon Dioxide 25.0 Anion Gap 8 BUN 8 Creatinine 0.63 Estim Creat Clear Calc 111.73 Est GFR (MDRD) Af Amer 141 Est GFR (MDRD) Non-Af 117 BUN/Creatinine Ratio 12.6 Glucose 99 Calcium 7.7 L Phosphorus 2.3 L Magnesium 1.9 Total Bilirubin 0.30 AST 123 H ALT 463 H Alkaline Phosphatase 110 Total Protein 5.9 L Albumin 2.7 L Globulin 3.2 Albumin/Globulin Ratio 0.8 L Lipase 378 general surgery Operations: cholecystecomy Procedures: - - ERCP with sphincterotomy Summary of Care Provided: Patient is a 32 y/o female with no signficant PMH who was admitted on 11/18/17 via the ED with a complaint of abdominal pain which started ~ 10-12 hours prior to admission. SHe was diagnosed with gallstone pancreatitis and possible choledocholithiasis and cholangitis. Lipase was markedly elevated on admission and LFTs were also abnormal. She had an ERCP doneon 11/18/17, nad no stone was removed, so a stent was placed. She subsequently had a laparoscopic cholecystectomy on 11/01/17. She remained stable and was discharged on 11/20/2017 to follow-up with her primary care doctor and general surgeon Patient seen and examined. She had no complaints and felt well. She denied any fever or chills, any abdominal pain, any diarrhea vomiting. Pain at surgical site is well controlled. Review of systems otherwise negative. o/e: GENERAL: alert, oriented X 3, Cooperative, still looks ill and in pain ORAL: moist mucosa, no mucosal lesions NECK: No JVD, supple, trachea midline LUNGS: CTA, symmetric chest expansion. Adequate breath sounds bilaterally. HEART: RRR, Normal S1 and S2, no rub, no gallop ABDOMEN: soft, minimal tenderness; dressing in laparoscopic areas clean and dry. t EXTREMITIES: no edema, no cyanosis, no calf tenderness SKIN: No rashes, no breakdown NEUROLOGIC: no focal neurologic deficits PSYCH: appropriate, normal affect, pleasant Plan as stated above. Discussed that Dr. Howard, patient does not need any antibiotics she has a stent in which is draining. She is to follow-up with primary care doctor and general surgeon. T [] Discharge Diet: Light diet - advance as tolerated Discharge Activity: May Not Drive - for 2-3 days or while taking narcotic pain medications., - - Do not drive, work heavy equipment or sign legal documents for 24 hours. May shower in (days): 1 - with the bandage in place. Weight Bearing Status: Weight bearing as tolerated Additional Activity Instructions:: Pain medication may cause nausea. You should typically eat light foods as you take your pain medications. Pain medication may also cause constipation. If this is a problem for you, please discuss with your doctor. Call your doctor if your incision/area has: Continuous Slow Oozing, Sudden Increased Bleeding, Increased Pain/ Swelling, Increased Redness, Foul Smelling Discharge Call your doctor if you observe: Fever of 101 or Higher Suture Line Care: Avoid Pulling/Pushing, Avoid Pinching/Bending Additional Dressing/Incision Instructions:: Leave operative bandaids on for 2 days. When you remove dressing, leave Steri-Strips on until your follow-up appointment, or until the Steri-Strips fall off on their own. Home Medications: Medications to take at Discharge Oxycodone HCl/Acetaminophen [Percocet 5/325] 1 - 2 tab PO Q4H PRN PRN 4 Days #30 tab 11/20/17 Following Prescrptions Were Given to Patient: Oxycodone HCl/Acetaminophen [Percocet 5/325] 1 - 2 tab PO Q4H PRN PRN 4 Days #30 tab PRN Reason: Pain Primary Care Physician: Farnaz Wray [employer] [Primary Care Provider] - Please Follow Up With: Kumar Howard MD - Please call [phone] to schedule an appointment. When: 7 days after your surgery. Disposition: Home Minutes spent on discharge:: 35 Patient Condition:: Stable Medical Necessity - Tobacco Use Smoking Status: Never smoker Tobacco Use: Non-smoker Meaningful Use Info Meaningful Use Diagnoses (Choose all that apply): None applicable Code Visit Inpatient E&M: 38473 Disch Hosp
--- NOTE | 2017-11-20 14:44 | DS.PCM_ITS ---
Discharge Date and Diagnosis - Problem List Patient Problems: Active and Suspected Problems Acute pancreatitis (Acute) Gallstone pancreatitis (Acute) Obstructive jaundice (Acute) Date of Admission: 11/18/17 Date of Discharge: 11/20/17 - Primary Discharge Diagnosis Active and Suspected Problems Acute pancreatitis (Acute) Gallstone pancreatitis (Acute) Obstructive jaundice (Acute) Hospital Course and Treatment Imaging Results: Diagnostic Data Abdomen/Pelvis CT 11/18/17 01:11 IMPRESSION: Cholelithiasis. Electronically Signed: Tommy Hutchins MD at 2:10 EDT Tel , Service support , Gallbladder Ultrasound 11/18/17 04:51 IMPRESSION: Fatty infiltration of the liver with focal fatty sparing. Multiple gallstones. Electronically Signed: Rudy Torres MD at 9:50 EDT Tel [phone], Service support , ERCP X-Ray 11/18/17 11:05 IMPRESSION: Gallstones. Placement of a biliary stent. Electronically Signed: Rudy Torres MD at 14:53 EDT Tel [phone], Service support , Laboratory Tests Past 24 Hrs 11/20/17 11/20/17 06:43 06:43 WBC 6.3 RBC 4.09 L Hgb 10.0 L Hct 31.9 L MCV 78.0 L MCH 24.4 L MCHC 31.3 L RDW 17.1 H RDW Differential 47.2 H Plt Count 278 MPV 10.0 Immature Gran % (Auto) 0.200 Neut % (Auto) 59.2 Lymph % (Auto) 34.0 [place] % (Auto) 6.2 Eos % (Auto) 0.2 Baso % (Auto) 0.2 Absolute Neuts (auto) 3.7 Absolute Lymphs (auto) 2.14 Total Counted Not Reportable Sodium 144 Potassium 3.9 Chloride 111 H Carbon Dioxide 25.0 Anion Gap 8 BUN 8 Creatinine 0.63 Estim Creat Clear Calc 111.73 Est GFR (MDRD) Af Amer 141 Est GFR (MDRD) Non-Af 117 BUN/Creatinine Ratio 12.6 Glucose 99 Calcium 7.7 L Phosphorus 2.3 L Magnesium 1.9 Total Bilirubin 0.30 AST 123 H ALT 463 H Alkaline Phosphatase 110 Total Protein 5.9 L Albumin 2.7 L Globulin 3.2 Albumin/Globulin Ratio 0.8 L Lipase 378 general surgery Operations: cholecystecomy Procedures: - - ERCP with sphincterotomy Summary of Care Provided: Patient is a 32 y/o female with no signficant PMH who was admitted on 11/18/17 via the ED with a complaint of abdominal pain which started ~ 10-12 hours prior to admission. SHe was diagnosed with gallstone pancreatitis and possible choledocholithiasis and cholangitis. Lipase was markedly elevated on admission and LFTs were also abnormal. She had an ERCP doneon 11/18/17, nad no stone was removed, so a stent was placed. She subsequently had a laparoscopic cholecystectomy on 11/01/17. She remained stable and was discharged on 11/20/2017 to follow-up with her primary care doctor and general surgeon Patient seen and examined. She had no complaints and felt well. She denied any fever or chills, any abdominal pain, any diarrhea vomiting. Pain at surgical site is well controlled. Review of systems otherwise negative. o/e: GENERAL: alert, oriented X 3, Cooperative, still looks ill and in pain ORAL: moist mucosa, no mucosal lesions NECK: No JVD, supple, trachea midline LUNGS: CTA, symmetric chest expansion. Adequate breath sounds bilaterally. HEART: RRR, Normal S1 and S2, no rub, no gallop ABDOMEN: soft, minimal tenderness; dressing in laparoscopic areas clean and dry. t EXTREMITIES: no edema, no cyanosis, no calf tenderness SKIN: No rashes, no breakdown NEUROLOGIC: no focal neurologic deficits PSYCH: appropriate, normal affect, pleasant Plan as stated above. Discussed that Dr. Howard, patient does not need any antibiotics she has a stent in which is draining. She is to follow-up with primary care doctor and general surgeon. T [] Discharge Diet: Light diet - advance as tolerated Discharge Activity: May Not Drive - for 2-3 days or while taking narcotic pain medications., - - Do not drive, work heavy equipment or sign legal documents for 24 hours. May shower in (days): 1 - with the bandage in place. Weight Bearing Status: Weight bearing as tolerated Additional Activity Instructions:: Pain medication may cause nausea. You should typically eat light foods as you take your pain medications. Pain medication may also cause constipation. If this is a problem for you, please discuss with your doctor. Call your doctor if your incision/area has: Continuous Slow Oozing, Sudden Increased Bleeding, Increased Pain/ Swelling, Increased Redness, Foul Smelling Discharge Call your doctor if you observe: Fever of 101 or Higher Suture Line Care: Avoid Pulling/Pushing, Avoid Pinching/Bending Additional Dressing/Incision Instructions:: Leave operative bandaids on for 2 days. When you remove dressing, leave Steri-Strips on until your follow-up appointment, or until the Steri-Strips fall off on their own. Home Medications: Medications to take at Discharge Oxycodone HCl/Acetaminophen [Percocet 5/325] 1 - 2 tab PO Q4H PRN PRN 4 Days # 30 tab 11/20/17 Following Prescrptions Were Given to Patient: Oxycodone HCl/Acetaminophen [Percocet 5/325] 1 - 2 tab PO Q4H PRN PRN 4 Days # 30 tab PRN Reason: Pain Primary Care Physician: Farnaz Wray [employer] [Primary Care Provider] - Please Follow Up With: Kumar Howard MD - Please call [phone] to schedule an appointment. When: 7 days after your surgery. Disposition: Home Minutes spent on discharge:: 35 Patient Condition:: Stable Medical Necessity - Tobacco Use Smoking Status: Never smoker Tobacco Use: Non-smoker Meaningful Use Info Meaningful Use Diagnoses (Choose all that apply): None applicable Code Visit Inpatient E&M: 38392 Disch Hosp
[2017-11-20 14:52] VITALS: BP 132/74; PULSE 56; RESP 18; TEMP 36.7; O2SAT 97
[2017-11-20] MEDS: Morphine 2 MG/ML Syringe IV (14:53)
[2017-11-20] MEDS: 0.9% NaCl Peripheral Flush Adult/Peds IV (14:54)
== END 2017-11-20 15:00 | disposition home or self-care (01) | DRG 418 ==
LOC: ED 11-18 00:15 → MS3 11-18 04:13
PROVIDERS: Internal Medicine; Physician Assistant; Surgery; Admitting Provider Hospitalist; Emergency Provider Emergency Medicine; Family Provider Nurse Practitioner Family; PCP Nurse Practitioner Family; Visit Provider Student in an Organized Health Care Education/Training Program
PROC: 0F798DZ Dilation of Common Bile Duct with Intraluminal Device, Via Natural or Artificial Opening Endoscopic (ICD-10-PCS; CPT 43260; principal; 2017-11-18 13:00)
PROC: 0FT44ZZ Resection of Gallbladder, Percutaneous Endoscopic Approach (ICD-10-PCS; principal; 2017-11-19 10:50)
DX: K85.10 Biliary acute pancreatitis without necrosis or infection (principal); K80.65 Calculus of gallbladder and bile duct with chronic cholecystitis with obstruction; K83.0 Cholangitis; K76.0 Fatty (change of) liver, not elsewhere classified; E87.6 Hypokalemia; E61.1 Iron deficiency; E66.9 Obesity, unspecified; Z68.33 Body mass index [BMI] 33.0-33.9, adult
CPT/HCPCS: 36415; 74177; 74328; 76000; 76705; 80048; 80053; 80061; 80076; 81001; 81025; 83690; 83735; 84100; 85025; 88304; 93005; 99282; J7030; J7120; Q9967; A4216; J2405

== ENCOUNTER 2017-12-02 06:18 | Day surgery (SDC) | payer SELFPAY ==
[2017-12-02] VITALS (7 sets, daily range): BP systolic 109–120; BP diastolic 70–80; PULSE 65–80; RESP 16; TEMP 36.1–36.5; O2SAT 98–100; BMI 35.0
[2017-12-02 07:23] LABS: Internal QC Validated? YES +Cl - CLEAR BKGD; Pregnancy, Urine Negative Negative
--- NOTE | 2017-12-02 07:49 | PCM.HP.STD ---
Problem List (1) History of biliary stent insertion Status: Acute History of Present Illness Date of Admission: 12/02/17 The patient is a 32 year old F who was in the hospital a few weeks ago for obstructive jaundice and acute cholecystitis. The patient had ERCP but at that time I was unable to remove the definitive stones I placed a biliary stent. The patient had subsequent laparoscopic cholecystectomy. The patient comes in today for stent removal and complains of no pain or nausea or vomiting. The patient is tolerating a diet well. Past Medical History Medical History: Medical History (Last Reviewed 11/25/17 @ 09:27 by Adriana Garcia) Cholelithiasis (Acute) K80.20 Chronic cholecystitis (Acute) K81.1 Acute pancreatitis (Acute) K85.90 Gallstone pancreatitis (Acute) K85.10 Obstructive jaundice (Acute) K83.8 Allergies No Known Allergies Allergy (Verified 11/30/17 08:25) Home Medications: Ambulatory Orders Medication Instructions Recorded Oxycodone HCl/Acetaminophen 1 - 2 tab PO Q4H PRN PRN 4 Days 11/20/17 [Percocet 5/325] #30 tab Surgical History: Surgical History (Last Reviewed 11/25/17 @ 09:27 by Adriana Garcia) Hx of cholecystectomy (Acute) Z90.49 11/18/2017 Surgical History: no surgical history Psychiatric History: No pertinent psych hx 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 Smoking Status: Never smoker - *Family History Maternal History Items: No pertinent history Paternal History Items: No pertinent history Review of Systems Constitutional: Denies: Anorexia, Chills, Fever HEENT: Denies: Difficulty Swallowing Cardiovascular: Denies: Chest Pain Respiratory: Denies: Cough, Shortness of Breath Gastrointestinal: Denies: Abdominal Pain, Nausea Genitourinary: Denies: Dysuria Musculoskeletal: Denies: Joint Tenderness Skin: Denies: Jaundice Psychiatric: Denies: Anxiety, Depression Hematologic/ Lymphatic: Denies: Anemia VTE Information - Inpt Only VTE Present on Admission: No VTE Pharm Prophylaxis ordered?: No Patient Problems: Active and Suspected Problems (Last Reviewed 11/25/17 @ 09:27 by Adriana Garcia) History of biliary stent insertion (Acute) - Physical Exam General: Alert, Oriented x3, Cooperative, No apparent distress HEENT: Atraumatic Neck: Supple Lungs: Normal air movement Cardiovascular: Regular rate, Regular Rhythm Abdomen: Soft, Non Tender, Non-Distended Vital Signs Temp Pulse Resp BP Pulse Ox 97.7 F L 65 16 109/70 98 12/02/17 06:54 12/02/17 06:54 12/02/17 06:54 12/02/17 06:54 12/02/17 06:54 Oxygen Delivery Method Room Air Weight: 191 lb 12.835 oz Body Mass Index (BMI) 35.0 Laboratory Tests Past 24 Hrs 12/02/17 06:30 Urine Test Negative Assessment/Plan All Active Problems (Last Reviewed 11/25/17 @ 09:27 by Adriana Garcia) History of biliary stent insertion (Acute) Cholelithiasis (Acute) Chronic cholecystitis (Acute) Hx of cholecystectomy (Acute) Acute pancreatitis (Acute) Gallstone pancreatitis (Acute) Obstructive jaundice (Acute) 32-year-old female here for ERCP and stent removal 1. The patient is here for elective ERCP to remove the stent and to ensure the bile duct is clear of any stones. Patient was described the risks of the procedure including but not limited to bleeding, infection, perforation of the bile duct or bowel, pancreatitis. The patient consents to proceed. Te Adams MD Pager: [facility] [address] [place] [address] [place] [address] Office:
--- NOTE | 2017-12-02 08:15 | RAD_ITS ---
STUDY: ERCP. REASON FOR EXAM: Female, 32 years old. Stent removal. FLUOROSCOPY TIME (if supplied): (109 seconds.) minutes/seconds TECHNIQUE: Intraoperative fluoroscopic services provided for Miko stent removal. COMPARISON: None. FINDINGS: Biliary stent removal. RAD/ERCP Biliary Only IMPRESSION: Biliary stent removal. Electronically Signed: Rudy Torres MD at 14:28 EDT Tel [phone], Service support ,
--- NOTE | 2017-12-02 08:56 | PCM.OPRPT ---
Problem List (1) History of biliary stent insertion Status: Acute Report of Operation Date of Procedure: 12/02/17 Pre-Operative Diagnosis: Presence of biliary stent, choledocholithiasis Post-Operative Diagnosis: Same Surgery/Procedure Performed:: ERCP with stent removal Description of Procedure: After describing the risks of the procedure as well as the procedure in detail informed consent was obtained. Patient was brought to the operating room and general anesthesia was induced. The patient was then placed in a semi-prone position. Next, the side-viewing endoscope was placed into the mouth and down into the stomach and advanced into the duodenum. The ampulla was located. A snare was used to remove the biliary stent. The scope was placed back into the duodenum and the sphincterotome was used to cannulate the common bile duct and a guidewire was placed in the common bile duct. A balloon was then introduced over the guidewire and the common bile duct and several sweeps were performed. The duct appeared clear of stones. There was good flow of bile. The balloon was removed as well as the guidewire. The side-viewing scope was then withdrawn back into the stomach and the stomach was suctioned. Next, the scope was removed. The patient was taken to PACU in stable condition. The patient tolerated the procedure well.
== END 2017-12-02 10:12 | disposition home or self-care (01) ==
LOC: EN 06:19 → AC 06:20
PROVIDERS: Anesthesiology; Visit Provider Surgery
PROC: (CPT 43260; principal; 2017-12-02 07:30)
DX: Z46.59 Encounter for fitting and adjustment of other gastrointestinal appliance and device (principal); K80.50 Calculus of bile duct without cholangitis or cholecystitis without obstruction
CPT/HCPCS: 43275; 74328; 76000; 81025; J7120; C1769; J2405

== ENCOUNTER 2019-04-22 23:16 | Emergency (ER) | payer SELFPAY ==
[2019-04-22 23:16] VITALS: BP 127/83; PULSE 71; RESP 15; TEMP 36.6; O2SAT 99; BMI 34.6
--- NOTE | 2019-04-22 23:29 | ED.DCSUM_ITS ---
History of Present Illness Chief Complaint: Abd Pain Informant: Patient, Family Onset: Today Context: Gradual Onset Timing: Waxes and wanes Current Severity: Mild Maximum Severity: Mild Narrative: Patient reports mild pain and burning sensation to the right lower quadrant that started today. Patient is concerned because her last menstrual cycle was on March 07. She has taken 4 home test that were all negative. She is had no nausea or vomiting. She has no urinary symptoms. She is had normal bowel movements. She has had prior cholecystectomy. - Past Medical History (1) History of biliary stent insertion Status: Chronic (2) Hx of cholecystectomy Status: Chronic Comment: 11/18/2017 (3) Gallstone pancreatitis Status: Chronic Past Medical History - Allergies and Home Meds Allergies/Adverse Reactions: Allergies No Known Allergies Allergy (Verified 04/22/19 23:21) Primary Care Physician: Claudia Estevez [Primary Care Provider] - Prior records reviewed: Yes Surgical History: no surgical history Lives: With Family Smoking Status: Never smoker - Family History Maternal Family History: Reports: No pertinent history Paternal Family History: Reports: No pertinent history Review of Systems General: Denies: Chills, Fever Eyes: Denies: Visual changes - bilaterally Cardiovascular: Denies: Chest pain Respiratory: Denies: Dyspnea, Cough Gastrointestinal: Reports: Abdominal pain. Denies: Nausea, Vomiting, Diarrhea Genitourinary: Denies: Dysuria, Hematuria Musculoskeletal: Denies: Back pain, Extremity Pain Skin: Denies: Rash Neurological: Denies: Headache Allergy: Denies: Uticaria Physical Exam Vital Signs/Narrative: Vital Signs Temp Pulse Resp BP Pulse Ox 04/22/19 23:16 97.9 F 71 15 127/83 H 99 Inital Vital Signs reviewed: Yes General: Well nourished, Well developed Head: Normocephalic ENT: Moist mucous membranes Cardiovascular: Regular rate, Regular rhythm Respiratory: No distress, CTA bilaterally Abdomen: Soft, Normal bowel sounds, Tender - Minimal tenderness to palpation of the right lower quadrant.. Negative for: Guarding, Rebound tenderness Extremities: Nontender Skin: Normal color Neurological: Alert, Oriented x3 Psychological: Normal affect Diagnostic/Tx/Re-eval Laboratory Results 04/22/19 04/22/19 23:30 23:30 WBC 6.6 RBC 4.50 Hgb 11.0 L Hct 35.1 L MCV 78.0 L MCH 24.4 L MCHC 31.3 L RDW Std Deviation 41.8 RDW Coeff of Mandi 15.0 H Plt Count 297 MPV 9.0 Immature Gran % (Auto) 0.500 Neut % (Auto) 54.6 Lymph % (Auto) 34.5 [place] % (Auto) 8.4 Eos % (Auto) 1.7 Baso % (Auto) 0.3 Absolute Neuts (auto) 3.6 Absolute Lymphs (auto) 2.29 Nucleated RBC % 0 Sodium 139 Potassium 3.7 Chloride 107 Carbon Dioxide 27.0 Anion Gap 5 BUN 15 Creatinine 0.80 Estim Creat Clear Calc 83.51 Est GFR (MDRD) Af Amer 107 Est GFR (MDRD) Non-Af 88 BUN/Creatinine Ratio 18.8 Glucose 95 Calcium 8.9 - Medical Decision Making test and urinalysis are still pending at this time. Patient be signed out to oncoming physician to check these values. If patient's test is positive she will require an ultrasound to rule out ectopic . ED Disposition - Plan for ED Patient: Referrals: Claudia Estevez [Primary Care Provider] -
[2019-04-22 23:48] LABS: Absolute Lymphocyte Count 2.29 X10^3/uL (0.83-4.51); Absolute Neutrophil Count 3.6 X10^3/uL (2.0-7.7); Basophil# 0.02 X10^3/uL; Basophil% 0.3 % (0-1); Eosinophil# 0.11 X10^3/uL; Eosinophils% 1.7 % (0-5); Hematocrit 35.1 % (37-47); Lymphocyte # 2.29 X10^3/ul (4.0); Lymphocyte % 34.5 % (19-41); Mean Corp Hgb Conc 31.3 g/dL (32-36); Mean Corpuscular Hgb 24.4 pg (27.0-32.0); Monocyte# 0.56 X10^3/uL; Monocyte% 8.4 % (0-10); NRBC Flagged by Analyzer 0 % (0-5); Neutrophil # 3.63 X10^3/uL (2.7-7.7); Neutrophil % 54.6 % (47-70); Platelet Count 297 K/mm3 (150-450); RBC Distribution Width SD 41.8 fl (35.1-43.9); White Blood Count 6.6 K/mm3 (4.4-11.0)
[2019-04-23 00:01] LABS: Anion Gap 5 (5-15); BUN 15 mg/dL (7-18); BUN/Creat Ratio 18.8 RATIO (10-20); Calcium,Total 8.9 mg/dL (8.5-10.1); Chloride 107 mmol/L (98-107); EST Glomerular Filtration Rate 88 mL/min (>60); Est Glom Filt Rate - Afr Amer 107 mL/min (>60); Estimated Creatinine Clearance 83.51 ml/min; Glucose 95 mg/dL (74-106); Potassium 3.7 mmol/L (3.5-5.1); Sodium Level 139 mmol/L (136-145)
[2019-04-23 00:34] LABS: Bacteria 0 SEEN /hpf (None Seen); Mucous, Urine 0 SEEN /hpf (<or=2+); Red Blood Cells-Urine 0 SEEN /hpf (0-5); White Blood Cells 0 SEEN /hpf (0-5)
[2019-04-23 00:36] LABS: Internal QC Validated? YES +Cl - CLEAR BKGD; Pregnancy, Serum, hCG Quali. NEGATIVE Negative
[2019-04-23 00:37] LABS: Color, Urine Straw (Yellow); Glucose, Dipstick Normal (Normal); Ketone-Dipstick Negative (Negative); Leukocyte Esterase-Dipstick Negative /ul (Negative); Nitrite-Dipstick Negative (Negative); Occult Blood-Urine Negative /ul (Negative); Protein-Dipstick Negative (Negative); Urine Bilirubin Dipstick Negative (Negative); Urine Clarity Clear (Clear); Urine Urobilinogen Normal (Normal)
[2019-04-23 00:43] LABS: Squamous Epithelial Cells - UA 5-10 SEEN /hpf (5-10)
[2019-04-23 00:49] VITALS: BP 118/80; PULSE 67; RESP 15; O2SAT 100
--- NOTE | 2019-04-23 00:50 | ED.DEP ---
ED Disposition - Plan for ED Patient: Instructions: ABDOMINAL PAIN, Unknown Cause, (Female) Referrals: Lilo Lopez,Claudia Trevino [Primary Care Provider] -
== END 2019-04-23 01:37 | disposition home or self-care (01) ==
LOC: ED 23:29
PROVIDERS: Emergency Provider Emergency Medicine
DX: R10.31 Right lower quadrant pain (principal); Z90.49 Acquired absence of other specified parts of digestive tract
CPT/HCPCS: 80048; 81001; 84703; 85025; 99283; A4216

== ENCOUNTER 2020-02-24 10:06 | Observation (INO) | payer OTHER, SELFPAY ==
[2020-02-24] VITALS (8 sets, daily range): BP systolic 108–140; BP diastolic 45–73; PULSE 65–108; RESP 16–18; TEMP 36.4–36.8; O2SAT 94–100; BMI 34.7; BMI 34.8
--- NOTE | 2020-02-24 10:22 | ED.VIS.GI ---
History of Present Illness Informant: Patient, Family - Abdominal Pain/Flank Pain Onset: Yesterday Context: Gradual Onset Timing: Continuous Quality: Cramping Location: Diffuse Current Severity: Severe Maximum Severity: Severe Worsened by: Nothing Relieved by: Remaining Still - Nausea/Vomiting/Emesis GI Symptom: Nausea. Negative for: Vomiting - Diarrhea/Melena/Hematochezia GI Symptom: Negative for: Diarrhea, Melena, Hematochezia Associated Symptoms: Negative for: Dysuria, Frequency, Hematuria, Urgency LMP: 3 weeks Narrative: 34-year-old female who denies any significant past medical history presents to the emergency department with abdominal pain. She has diffuse cramping abdominal pain. It started last evening. It progressed through the night into this morning. She has nausea without vomiting. No diarrhea melena or hematochezia. No constipation. No urinary symptoms. She did start her menstrual cycle yesterday. She denies any heavy bleeding or significant pain with her previous menstrual cycles. She is not concerned for . She has not had a fever cough congestion chest pain shortness of breath or contacts with anyone with Covid. She has not been lightheaded or dizzy. No history of anemia. No other symptoms of easy bleeding or bruising. Prior similar symptoms: No Recent Illness/Hospitalization: No <Te Liang - Last Filed: 02/24/20 12:40> <Kumar Clark - Last Filed: 02/24/20 12:46> Chief Complaint: Abd Pain Past Medical History Prior records reviewed: Yes Past Medical History: - - Denies Surgical History: cholecystectomy Lives: With Family Smoking Status: Never smoker Alcohol: None Drugs: None - Family History Maternal Family History: Reports: No pertinent history Paternal Family History: Reports: No pertinent history <Te Liang - Last Filed: 02/24/20 12:40> <Kumar Clark - Last Filed: 02/24/20 12:46> - Allergies and Home Meds Allergies/Adverse Reactions: Allergies No Known Allergies Allergy (Verified 02/24/20 10:08) Primary Care Physician: [facility] Claudia Moffett [Primary Care Provider] - Review of Systems All systems negative except as indicated General: Denies: Chills, Fever, Sweats Eyes: Denies: Visual changes - bilaterally, Diplopia ENT: Denies: Rhinorrhea, Sore throat Cardiovascular: Denies: Chest pain, Palpitations Respiratory: Denies: Dyspnea, Cough, Dyspnea on exertion Gastrointestinal: Reports: Abdominal pain, Nausea. Denies: Vomiting, Diarrhea, Constipation, Melena, Hematochezia Genitourinary: Denies: Dysuria, Hematuria, Frequency Musculoskeletal: Denies: Myalgias, Arthralgias, Neck pain, Back pain, Extremity Pain Skin: Denies: Rash, Wounds Neurological: Denies: Headache, Weakness, Numbness <Te Liang - Last Filed: 02/24/20 12:40> Physical Exam Vital Signs/Narrative: Vital Signs Temp Pulse Resp BP Pulse Ox 02/24/20 10:06 97.5 F L 65 16 140/73 H 100 Inital Vital Signs reviewed: Yes General: Well nourished, Well developed, No Acute Distress Head: Normocephalic, Atraumatic Eyes: Perrl, EOMI ENT: Moist mucous membranes, No rhinorrhea Neck: Supple, Nontender Cardiovascular: Regular rate, Regular rhythm, No murmurs Respiratory: No distress, CTA bilaterally, Chest nontender Abdomen: Soft, Nontender, Nondistended, Normal bowel sounds Back: Nontender, Normal Inspection. Negative for: CVA tenderness Extremities: Nontender, No edema Skin: Normal color, No rash Neurological: Alert, Oriented x3, Cranial nerves II-XII grossly intact, Normal Strength, Normal Sensation Psychological: Normal affect, Normal Mood <Te Liang - Last Filed: 02/24/20 12:40> Vital Signs/Narrative: Vital Signs Temp Pulse Resp BP Pulse Ox 02/24/20 10:06 97.5 F L 65 16 140/73 H 100 <Kumar Clark - Last Filed: 02/24/20 12:46> Diagnostic/Tx/Re-eval Impressions Abdomen/Pelvis CT 02/24/20 11:14 IMPRESSION: Acute appendicitis without abscess or perforation. Electronically Signed: Jatinder Rojo MD at 12:25 EDT Tel , Service support , ADDENDUM: 02/24/20 1235 IMPRESSION: Acute appendicitis without abscess or perforation. N.B. : The above information has been verbally conveyed by Jatinder Rojo MD to MADONNA MADDEN, on 02/24/2020 12:28:54 (ET). Electronically Signed: Jatinder Rojo MD at 12:25 EDT Tel , Service support , 02/24/20 11:14 Abdomen/Pelvis W IV Cont ONLY [CT] Stat Laboratory Results 02/24/20 02/24/20 02/24/20 10:25 10:25 10:25 WBC 14.4 H RBC 4.50 Hgb 10.8 L Hct 34.8 L MCV 77.3 L MCH 24.0 L MCHC 31.0 L RDW Std Deviation 41.2 RDW Coeff of Mandi 14.8 H Plt Count 348 MPV 9.3 Immature Gran % (Auto) 0.400 Neut % (Auto) 82.6 H Lymph % (Auto) 13.7 L [place] % (Auto) 3.0 Eos % (Auto) 0.2 Baso % (Auto) 0.1 Absolute Neuts (auto) 11.9 H Absolute Lymphs (auto) 1.98 Nucleated RBC % 0 Sodium 140 Potassium 3.6 Chloride 107 Carbon Dioxide 25.0 Anion Gap 8 BUN 14 Creatinine 0.75 Estim Creat Clear Calc 84.38 Est GFR (MDRD) Af Amer 114 Est GFR (MDRD) Non-Af 94 BUN/Creatinine Ratio 18.6 Glucose 97 Calcium 8.8 Total Bilirubin 0.20 AST 13 L ALT 21 Alkaline Phosphatase 74 Total Protein 7.5 Albumin 3.6 Globulin 3.9 Albumin/Globulin Ratio 0.9 Lipase 77 Serum , Qual NEGATIVE Urine Color Urine Clarity Urine pH Ur Specific [place] Urine Protein Urine Glucose (UA) Urine Ketones Urine Occult Blood Urine Nitrite Urine Bilirubin Urine Urobilinogen Ur Leukocyte Esterase Urine RBC Urine WBC Ur Squamous Epith Cells Urine Bacteria Urine Mucus 02/24/20 11:40 WBC RBC Hgb Hct MCV MCH MCHC RDW Std Deviation RDW Coeff of Mandi Plt Count MPV Immature Gran % (Auto) Neut % (Auto) Lymph % (Auto) [place] % (Auto) Eos % (Auto) Baso % (Auto) Absolute Neuts (auto) Absolute Lymphs (auto) Nucleated RBC % Sodium Potassium Chloride Carbon Dioxide Anion Gap BUN Creatinine Estim Creat Clear Calc Est GFR (MDRD) Af Amer Est GFR (MDRD) Non-Af BUN/Creatinine Ratio Glucose Calcium Total Bilirubin AST ALT Alkaline Phosphatase Total Protein Albumin Globulin Albumin/Globulin Ratio Lipase Serum , Qual Urine Color Red Urine Clarity Turbid Urine pH 8.0 Ur Specific [place] 1.010 Urine Protein 100 H Urine Glucose (UA) Normal Urine Ketones 5 H Urine Occult Blood 250 H Urine Nitrite Negative Urine Bilirubin Negative Urine Urobilinogen Normal Ur Leukocyte Esterase 25 H Urine RBC > 100 SEEN Urine WBC 10-25 SEEN Ur Squamous Epith Cells 10-25 SEEN Urine Bacteria 2+ Urine Mucus 0 SEEN - Medical Decision Making Patient was given fluids Toradol and Zofran. Laboratory work-up was remarkable for white blood cell count of 14. The rest of her labs are unremarkable. Urinalysis was negative. was negative. CT scan demonstrated acute appendicitis. Patient made n.p.o. I spoke with Dr. Soto. Patient will be taken to surgery. She was given a dose of Zosyn. She declined further analgesia. Vital signs are stable. <Te Liang - Last Filed: 02/24/20 12:40> - Medical Decision Making Attending note: I saw the patient independently. Patient has diffuse abdominal pain. Worse of the lower abdomen. History of cholecystectomy. Afebrile. Vital signs reviewed. Patient has diffuse abdominal tenderness. No guarding or rebound. No jaundice or skin changes. Acute appendicitis Labs and CT reflect acute appendicitis. Patient was treated with antibiotics and referred to surgery for further care. <Kumar Clark - Last Filed: 02/24/20 12:46> ED Disposition <Te Liang - Last Filed: 02/24/20 12:40> <Kumar Clark - Last Filed: 02/24/20 12:46> - Plan for ED Patient: Disposition: [facility] Care [facility] Diagnosis: Acute appendicitis Referrals: [facility],Claudia Trevino [Primary Care Provider] -
[2020-02-24] MEDS: Ketorolac 15 MG/ML Vial IV ×2 (10:27→17:13)
[2020-02-24] MEDS: 0.9% Normal Saline 1,000 ML 1000 ML IV (10:27)
[2020-02-24] MEDS: Ondansetron 4 MG/2 ML Vial IV (10:28)
[2020-02-24 10:31] LABS: Absolute Lymphocyte Count 1.98 X10^3/uL (0.83-4.51); Absolute Neutrophil Count 11.9 X10^3/uL (2.0-7.7); Basophil# 0.02 X10^3/uL; Basophil% 0.1 % (0-1); Eosinophil# 0.03 X10^3/uL; Eosinophils% 0.2 % (0-5); Hematocrit 34.8 % (37-47); Hemoglobin 10.8 g/dL (12.0-15.0); Lymphocyte # 1.98 X10^3/ul (4.0); Lymphocyte % 13.7 % (19-41); Mean Corpuscular Volume 77.3 fL (81-99); Mean Platelet Vol. 9.3 fl (6.2-12.0); Monocyte# 0.44 X10^3/uL; NRBC Flagged by Analyzer 0 % (0-5); Neutrophil # 11.91 X10^3/uL (2.7-7.7); Neutrophil % 82.6 % (47-70); Platelet Count 348 K/mm3 (150-450); RBC Distribution Width CV 14.8 % (11.6-14.6); RBC Distribution Width SD 41.2 fl (35.1-43.9); White Blood Count 14.4 K/mm3 (4.4-11.0)
[2020-02-24 11:09] LABS: ALB/GLOB Ratio 0.9 RATIO (0.9-2.4); AST(SGOT) 13 U/L (15-37); Alanine Aminotransfer ALT/SGPT 21 U/L (13-56); Albumin, Serum 3.6 g/dL (3.2-5.0); Alkaline Phosphatase 74 U/L (45-117); Anion Gap 8 (5-15); BUN 14 mg/dL (7-18); BUN/Creat Ratio 18.6 RATIO (10-20); Calcium,Total 8.8 mg/dL (8.5-10.1); Chloride 107 mmol/L (98-107); Creatinine, Serum 0.75 mg/dL (0.55-1.02); EST Glomerular Filtration Rate 94 mL/min (>60); Est Glom Filt Rate - Afr Amer 114 mL/min (>60); Estimated Creatinine Clearance 84.38 ml/min; Globulin 3.9 g/dL (2.2-4.2); Glucose 97 mg/dL (74-106); Lipase 77 U/L (73-393); Potassium 3.6 mmol/L (3.5-5.1); Protein, Total 7.5 g/dL (6.4-8.2); Sodium Level 140 mmol/L (136-145)
[2020-02-24 11:10] LABS: Pregnancy, Serum, hCG Quali. NEGATIVE Negative (0-9 Nonpreg)
--- NOTE | 2020-02-24 11:14 | CT_ITS ---
We are attempting to reach an attending provider to discuss findings. An addendum with communication details will be sent when the communication is complete. STUDY: CT ABDOMEN AND PELVIS WITH CONTRAST REASON FOR EXAM: Female, 34 years old. DIFFUSE AB PAIN WITH VOMITING. PRIOR CHOLECYSTECTOMY RADIATION DOSAGE (If Supplied By Facility): CTDIvol = ( 17.33 ) mGy, DLP = ( 1471.39 ) mGycm TECHNIQUE: Transaxial images were obtained from the dome of the diaphragm to the symphysis pubis without oral contrast. IV 100mL Isovue-370 was administered. Sagittal and coronal images were reconstructed. Individualized dose optimization techniques were used for this CT. COMPARISON: 11/18/2017 FINDINGS: The visualized lung bases are unremarkable. The visualized portions of the heart are within normal limits. Normal liver. There is non-visualization of the gallbladder, which may be secondary to either contraction or a prior cholecystectomy. Normal spleen. Normal pancreas. Normal bilateral adrenal glands. Normal right kidney. Normal left kidney. Normal visualized stomach. Normal small intestine. Normal colon. There is a tubular, thick-walled appendix (>7mm), consistent with acute appendicitis. No loculated fluid collection to suggest abscess. No pneumoperitoneum to suggest perforation. Normal abdominal aorta. Normal inferior vena cava. Normal retroperitoneum. Normal urinary bladder. Normal abdominal wall. Normal osseous structures. CT/Abdomen/Pelvis W IV Cont ONLY IMPRESSION: Acute appendicitis without abscess or perforation. Electronically Signed: Jatinder Rojo MD at 12:25 EDT Tel , Service support ,
[2020-02-24 11:17] LABS: Internal QC Validated? YES +Cl - CLEAR BKGD
[2020-02-24 11:48] LABS: Mucous, Urine 0 SEEN /hpf (<or=2+)
[2020-02-24 12:05] LABS: Color, Urine Red (Yellow); Glucose, Dipstick Normal (Normal); Ketone-Dipstick 5 mg/dl (Negative); Leukocyte Esterase-Dipstick 25 /ul (Negative); Nitrite-Dipstick Negative (Negative); Occult Blood-Urine 250 /ul (Negative); Protein-Dipstick 100 mg/dl (Negative); Urine Bilirubin Dipstick Negative (Negative); Urine Clarity Turbid (Clear); Urine Urobilinogen Normal (Normal)
[2020-02-24 12:15] LABS: Squamous Epithelial Cells - UA 10-25 SEEN /hpf (5-10); White Blood Cells 10-25 SEEN /hpf (0-5)
[2020-02-24 12:16] LABS: Bacteria 2+ /hpf (None Seen); Red Blood Cells-Urine > 100 SEEN /hpf (0-5)
[2020-02-24] MEDS: 0.9% Normal Saline 1,000 ML 60 ML IV (12:23)
--- NOTE | 2020-02-24 13:32 | PCM.HP.STD ---
Problem List (1) Acute appendicitis Status: Acute Qualifiers: Acute appendicitis type: unspecified acute appendicitis type Qualified Code(s): K35.80 - Unspecified acute appendicitis History of Present Illness Date of Admission: 02/24/20 The patient is a 34 year old F presents to the emergency room with abdominal pain. She reports that her abdominal pain started yesterday. She does have nausea and vomiting. She denies any fevers or chills. She does not have any shortness of breath. Past Medical History Past Medical History (Chronic Problems): Chronic Problems (Last Reviewed 11/25/17 @ 09:27 by Adriana Garcia) History of biliary stent insertion (Chronic) Hx of cholecystectomy (Chronic) 11/18/2017 Gallstone pancreatitis (Chronic) Medical History: Medical History (Last Reviewed 11/25/17 @ 09:27 by Adriana Garcia) Cholelithiasis (Acute) K80.20 Chronic cholecystitis (Acute) K81.1 Acute pancreatitis (Acute) K85.90 Gallstone pancreatitis (Chronic) K85.10 Obstructive jaundice (Acute) K83.8 Allergies No Known Allergies Allergy (Verified 02/24/20 10:08) Home Medications: Ambulatory Orders Medication Instructions Recorded NK 04/22/19 Surgical History: Surgical History (Last Reviewed 11/25/17 @ 09:27 by Adriana Garcia) Hx of cholecystectomy (Chronic) Z90.49 11/18/2017 Surgical History: cholecystectomy Psychiatric History: No pertinent psych hx [employer] History: No pertinent [employer] history Lives: With Family Smoking Status: Never smoker Alcohol: None Drugs: None - *Family History Maternal History Items: No pertinent history Paternal History Items: No pertinent history Review of Systems Constitutional: Denies: Anorexia, Fever HEENT: Denies: Difficulty Swallowing Cardiovascular: Denies: Chest Pain Respiratory: Denies: Cough, Shortness of Breath Gastrointestinal: Reports: Abdominal Pain, Nausea, Vomiting. Denies: Hematemesis, Hematochezia Genitourinary: Denies: Dysuria Musculoskeletal: Denies: Joint Tenderness Neurological: Denies: Balance problems Hematologic/ Lymphatic: Denies: Anemia VTE Information - Inpt Only VTE Present on Admission: No VTE Mechan Device Prophylaxis: SCD's Patient Problems: Active and Suspected Problems (Last Reviewed 11/25/17 @ 09:27 by Adriana Garcia) Acute appendicitis (Acute) - Physical Exam Vitals/I&O's: Vital Signs Temp Pulse Resp BP Pulse Ox 97.9 F 76 16 134/64 H 100 02/24/20 13:12 02/24/20 13:12 02/24/20 13:12 02/24/20 13:12 02/24/20 13:12 Oxygen Delivery Method Room Air Weight: 190 lb Body Mass Index (BMI) 34.7 Intake and Output for Last 24 Hours 02/22/20 02/23/20 02/24/20 23:59 23:59 23:59 Intake Total 1000 / 1000 Balance 1000 / 1000 General: Alert, Oriented x3 Neck: No JVD Lungs: Normal air movement Cardiovascular: Regular rate, Regular Rhythm Abdomen: Soft, Non-Distended, Tender - Tender right lower quadrant with no guarding or rebound Extremities: No clubbing Musculoskeletal: No Muscle Wasting Neurological: Cranial nerves II-XII grossly intact Psych/Mental Status: Normal Affect Laboratory Results 02/24/20 10:25: WBC 14.4 H, RBC 4.50, Hgb 10.8 L, Hct 34.8 L, MCV 77.3 L, MCH 24.0 L, MCHC 31.0 L, RDW Std Deviation 41.2, RDW Coeff of Mandi 14.8 H, Plt Count 348, MPV 9.3, Immature Gran % (Auto) 0.400, Neut % (Auto) 82.6 H, Lymph % (Auto) 13.7 L, [place] % (Auto) 3.0, Eos % (Auto) 0.2, Baso % (Auto) 0.1, Absolute Neuts (auto) 11.9 H, Absolute Lymphs (auto) 1.98, Nucleated RBC % 0 02/24/20 10:25: Sodium 140, Potassium 3.6, Chloride 107, Carbon Dioxide 25.0, Anion Gap 8, BUN 14, Creatinine 0.75, Estim Creat Clear Calc 84.38, Est GFR (MDRD) Af Amer 114, Est GFR (MDRD) Non-Af 94, BUN/Creatinine Ratio 18.6, Glucose 97, Calcium 8.8, Total Bilirubin 0.20, AST 13 L, ALT 21, Alkaline Phosphatase 74, Total Protein 7.5, Albumin 3.6, Globulin 3.9, Albumin/Globulin Ratio 0.9, Lipase 77 02/24/20 10:25: Serum , Qual NEGATIVE 02/24/20 11:40: Urine Color Red, Urine Clarity Turbid, Urine pH 8.0, Ur Specific [place] 1.010, Urine Protein 100 H, Urine Glucose (UA) Normal, Urine Ketones 5 H, Urine Occult Blood 250 H, Urine Nitrite Negative, Urine Bilirubin Negative, Urine Urobilinogen Normal, Ur Leukocyte Esterase 25 H, Urine RBC > 100 SEEN, Urine WBC 10-25 SEEN, Ur Squamous Epith Cells 10-25 SEEN, Urine Bacteria 2+, Urine Mucus 0 SEEN Clinical Impression(s) from Imaging Studies Abdomen/Pelvis CT 02/24/20 11:14 IMPRESSION: Acute appendicitis without abscess or perforation. Electronically Signed: Jatinder Rojo MD at 12:25 EDT Tel , Service support , ADDENDUM: 02/24/20 1235 IMPRESSION: Acute appendicitis without abscess or perforation. N.B. : The above information has been verbally conveyed by Jatinder Rojo MD to MADONNA MADDEN, on 02/24/2020 12:28:54 (ET). Electronically Signed: Jatinder Rojo MD at 12:25 EDT Tel , Service support , Assessment/Plan All Active Problems (Last Reviewed 11/25/17 @ 09:27 by Adriana Garcia) Acute appendicitis (Acute) Cholelithiasis (Acute) Chronic cholecystitis (Acute) Acute pancreatitis (Acute) Obstructive jaundice (Acute) 34-year-old female with acute appendicitis 1. Patient has elevated white count and CT suggesting acute appendicitis. The patient has been painful since yesterday. Patient has nausea and vomiting. I discussed laparoscopic appendectomy with the patient and her . I discussed the risks including not limited to bleeding, infection, injury other organs such as the bowel, bladder, ureter. The patient understands the risks and is when to proceed. Patient was given Zosyn in the emergency room. All questions were answered. Te Adams MD Pager: [facility] [address] [place] [address], [address] [place] [address] Office:
--- NOTE | 2020-02-24 13:45 | APP_PTH ---
PATIENT: ASHLEE GOFF LOC: MS3 U#:[id number] AGE/SX: 34/F ROOM: MS319 RE02/24/[address]: Dr. Te Adams MD : 1985 BED: 1 DIS: 02/24/2020 SPEC #: [id number] RECD: 02/26/20 07:19 STATUS: GLENN MILO #: [id number] CHAU: 02/24/20 13:[address]: Te Adams DEPT: SURGICAL PATHOLOGY RECD BY: Kristin Soto ENTERED: 02/26/20 09:05 SP TYPE: APPENDIX OTHR DR: Claudia [facility] Tissues: Appendix, NOS Procedures: Surgery Specimen Level III HEADER OPERATION: Laparoscopic appendectomy PRE-OP DIAGNOSIS: Acute appendicitis TISSUE SUBMITTED: Appendix MICROSCOPIC DIAGNOSIS Appendix, appendectomy: Acute appendicitis and periappendicitis. SOFI:mary 02/27/20 MICROSCOPIC DESCRIPTION Slides are reviewed. GROSS DESCRIPTION Received in fixative is one container labeled with the patient's name and designated appendix. The specimen consists of an appendix measuring 7 cm in length and up to 1 cm in diameter. The attached periappendiceal adipose tissue measures up to 1 cm in width. The serosa is congested. No obvious perforation is identified. The mucosa is congested. No fecalith is identified. Painter Maintenance sections are submitted in one cassette. / SJ:mary 02/26/20 TC:2 [facility]: [id number]
[2020-02-24] MEDS: Bupiv/Epi 0.25% 30 ML Vial (14:24)
--- NOTE | 2020-02-24 14:31 | OP.PCM_ITS ---
Problem List (1) Acute appendicitis Status: Acute Qualifiers: Acute appendicitis type: unspecified acute appendicitis type Qualified Code(s): K35.80 - Unspecified acute appendicitis Report of Operation Date of Procedure: 02/24/20 Pre-Operative Diagnosis: Acute appendicitis Post-Operative Diagnosis: Same Surgery/Procedure Performed:: Laparoscopic appendectomy Specimen's removed: Appendix Description of Procedure: The patient was brought into the operating room and general anesthesia was induced. The left arm was tucked and the abdomen was prepped and draped in usual sterile fashion. A small midline incision was made superior to the umbilicus and deepened to the level of the fascia. The fascia was elevated and incised. The peritoneum was also elevated and incised. A finger sweep was performed and a balloon trocar was placed into the abdomen and inflated. The abdomen was insufflated to 15 mmHg and the camera was inserted and the abdomen was inspected for any injuries upon entering the abdomen. There were none. The patient was placed in Trendelenburg position and a 5 mm ports placed in the left lower quadrant and suprapubic areas under direct visualization. Next using atraumatic bowel graspers the appendix was identified. The appendix was grasped and elevated and Enseal was used to take down the mesoappendix. A stapler was used to come across the base of the appendix. The appendix was then placed in Endo Catch bag and removed through the umbilical incision. The staple line was inspected and found to be hemostatic and intact. The 2 5 mm ports are removed under direct visualization. The balloon trocar was deflated and removed and all the air was removed from the abdomen. The umbilical incision fascia was closed with an 0 Vicryl [id number] suture. The incisions were then irrigated with saline and dried. Local anesthetic was injected into the incision sites. The skin incisions were then closed with interrupted 4-0 Monocryl suture and Steri- Strips. Bandages were applied and the patient was awoken and taken to PACU in stable condition. Patient tolerated the procedure well. - Admit VTE Documentation VTE Mechan Device Prophylaxis: SCD's
--- NOTE | 2020-02-24 14:34 | PCM.DC.APPY ---
Discharge Diet: Light diet - advance as tolerated Discharge Activity: May Not Drive - for 3-5 days or while taking narcotic pain meds. May shower in (days): 1 Lifting Restrictions: 20 lbs for 2 weeks Call your doctor if your incision/area has: Continuous Slow Oozing, Sudden Increased Bleeding, Increased Pain/ Swelling, Increased Redness, Foul Smelling Discharge Call your doctor if you observe: Fever of 101 or Higher Suture Line Care: Avoid Pulling/Pushing, Avoid Pinching/Bending Additional Dressing/Incision Instructions:: Keep dressing clean and dry. Change or remove dressing in 2 days. Leave steri strips for 1 week. May protect with a gauze bandaid. Medications to take at Discharge Oxycodone HCl/Acetaminophen [Percocet 5-325 mg Tablet] 1 - 2 tab PO Q6H PRN PRN 5 Days #20 tablet 02/24/20 Allergies/Adverse Reactions: Allergies No Known Allergies Allergy (Verified 02/24/20 10:08) The following prescriptions were given: Oxycodone HCl/Acetaminophen [Percocet 5-325 mg Tablet] 1 - 2 tab PO Q6H PRN PRN 5 Days #20 tablet PRN Reason: Pain Score 4-10/10 Transmission Status: Received by [facility]/pharmacy #[id number] Test Results: Test results from this visit will be discussed in further detail at your follow-up appointment, if applicable. Please Follow Up With: Te Adams MD When: Please call to schedule 2 week follow up appointment. [phone]
[2020-02-24] MEDS: 0.9% Saline Lock 10 ML Syringe IV (17:13)
== END 2020-02-24 19:19 | disposition home or self-care (01) ==
LOC: ED 12:42 → SDC 13:12 → MS3 13:13 → SDC 15:21 → MS3 15:21
PROVIDERS: Admitting Provider Surgery; Emergency Provider Physician Assistant Medical; Visit Provider Surgery
PROC: 0DTJ4ZZ Resection of Appendix, Percutaneous Endoscopic Approach (ICD-10-PCS; CPT 44970; principal; 2020-02-24 13:45)
DX: K35.80 Unspecified acute appendicitis (principal)
CPT/HCPCS: 00840; 44970; 74177; 80053; 81001; 83690; 84703; 85025; 88304; 96361; 96374; 96375; 96376; 99251; 99284; J7030; Q9967; A4216; C1760; G0463; J2405

== ENCOUNTER 2021-06-10 15:28 | Outpatient (CLI) | payer SELFPAY ==
[2021-06-10 17:13] LABS: Absolute Lymphocyte Count 2.06 X10^3/uL (0.83-4.51); Absolute Neutrophil Count 4.8 X10^3/uL (2.0-7.7); Basophil# 0.02 X10^3/uL; Basophil% 0.3 % (0-1); Eosinophil# 0.08 X10^3/uL; Eosinophils% 1.1 % (0-5); Hematocrit 30.9 % (37-47); Hemoglobin 9.8 g/dL (12.0-15.0); Lymphocyte # 2.06 X10^3/ul (0.83-4.51); Lymphocyte % 27.7 % (19-41); Mean Corp Hgb Conc 31.7 g/dL (32-36); Mean Corpuscular Volume 66.2 fL (81-99); Mean Platelet Vol. 9.6 fl (6.2-12.0); Monocyte# 0.43 X10^3/uL; Monocyte% 5.8 % (0-10); NRBC Flagged by Analyzer 0 % (0-5); Neutrophil # 4.83 X10^3/uL (2.7-7.7); Neutrophil % 64.8 % (47-70); Platelet Count 377 K/mm3 (150-450); RBC Distribution Width CV 18.5 % (11.6-14.6); RBC Distribution Width SD 42.9 fl (35.1-43.9); Red Blood Count 4.67 M/mm3 (4.2-5.4); White Blood Count 7.4 K/mm3 (4.4-11.0)
[2021-06-10 17:32] LABS: Hemoglobin A1c 5.8 % (3.8-5.6)
[2021-06-11 10:58] LABS: HIV - WCH Non-Reactive (Nonreactive); Hepatitis B Surface Antigen Non-Reactive (Nonreactive); Hepatitis C Antibody Non-Reactive (Nonreactive); Rubella IgG Reactive (Nonreactive); Syphilis Antibodies Non-reactive
[2021-06-13 00:06] LABS: Chlamydia By Nucleic Acid AMP Negative (Negative)
[2021-06-13 14:34] LABS: Gonococcus By Nucleic Acid AMP Negative (Negative)
[2021-06-14 14:48] LABS: HPV APTIMA, High Risk Negative (Negative)
== END 2021-06-10 23:59 | disposition home or self-care (01) ==
LOC: WOBLAB 15:29
PROVIDERS: Visit Provider Obstetrics & Gynecology
DX: Z34.81 Encounter for supervision of other normal pregnancy, first trimester (principal); Z12.4 Encounter for screening for malignant neoplasm of cervix; Z11.3 Encounter for screening for infections with a predominantly sexual mode of transmission
CPT/HCPCS: 36415; 83036; 85025; 86703; 86762; 86780; 86803; 87086; 87088; 87340; 87491; 87591; 87624; 88175; G0145

== ENCOUNTER 2021-12-16 11:35 | Inpatient (IN) | payer MEDICAID, SELFPAY ==
[2021-12-16] VITALS (35 sets, daily range): BP systolic 118–144; BP diastolic 55–81; PULSE 57–75; RESP 16; TEMP 36–36.4; O2SAT 96–100; BMI 39.1
[2021-12-16] MEDS: Oxytocin 30 units/NS 500 ml 30 UNITS/500 ML IV.SOLN 334 UNITS IV (11:58)
[2021-12-16 12:05] LABS: Absolute Neutrophil Count 6.6 X10^3/uL (2.0-7.7); Basophil# 0.01 X10^3/uL; Basophil% 0.1 % (0-1); Hematocrit 37.9 % (37-47); Hemoglobin 12.4 g/dL (12.0-15.0); Lymphocyte % 26.3 % (19-41); Mean Corp Hgb Conc 32.7 g/dL (32-36); Mean Corpuscular Hgb 26.1 pg (27.0-32.0); Mean Corpuscular Volume 79.6 fL (81-99); Mean Platelet Vol. 9.9 fl (6.2-12.0); Monocyte# 0.49 X10^3/uL; NRBC Flagged by Analyzer 0 % (0-5); Neutrophil # 6.61 X10^3/uL (2.7-7.7); Neutrophil % 66.9 % (47-70); Platelet Count 290 K/mm3 (150-450); RBC Distribution Width CV 17.3 % (11.6-14.6); RBC Distribution Width SD 49.3 fl (35.1-43.9); Red Blood Count 4.76 M/mm3 (4.2-5.4); White Blood Count 9.9 K/mm3 (4.4-11.0)
--- NOTE | 2021-12-16 12:16 | PCM.HP.OB ---
HPI - General General Date of Admission: 12/16/21 Date of Service: 12/16/21 HPI Narrative ASHLEE NI, is a 36 F who presents with contractions Maternal Data Information Final NOHEMY: 12/25/21 Gestational age: 38&5 PFSH [facility] Medical History (Updated 12/16/21 @ 12:[address] Peri Chandler MD) Acute pancreatitis Cholelithiasis Chronic cholecystitis Gallstone pancreatitis Labor, precipitous, delivered Migraine headache Obstructive jaundice Home Medications aspirin 81 mg tablet,delayed release mg 12/16/21 [History Last Taken Unknown] ferrous sulfate 325 mg (65 mg iron) tablet mg 12/16/21 [History Last Taken Unknown] vit no.95-ferrous fumarate 28 mg-folic acid 800 mcg tablet () tab PO ANEMIA 12/16/21 [History Last Taken Unknown] Allergy/AdvReac Type Severity Reaction Status Date / Time No Known Allergies Allergy Verified 12/16/21 12:06 Surgical History History of laparoscopic appendectomy (~03/2020) Hx of cholecystectomy Social History Smoking Status: Never smoker History Elective abortions Hx Para 2 Spontaneous abortions Hx # Term Pregnancies Ectopic pregnancies Hx # Pregnancies Multiple births # of living children Vital Signs Vital Signs Vital Signs: 12/16/21 11:46 12/16/21 11:46 12/16/21 12:12 Temperature Temperature Source Pulse Rate 62 Blood Pressure 132/81 H 144/61 H BP Systolic 132 144 BP Diastolic 81 61 Pulse Ox 12/16/21 12:12 12/16/21 11:48 12/16/21 11:48 Temperature 97.5 F L Temperature Source Temporal Pulse Rate 69 Blood Pressure BP Systolic BP Diastolic Pulse Ox 12/16/21 12:12 12/16/21 12:14 12/16/21 12:14 Temperature Temperature Source Temporal Pulse Rate 71 Blood Pressure BP Systolic BP Diastolic Pulse Ox 100 12/16/21 12:12 Temperature 97.3 F L Temperature Source Pulse Rate Blood Pressure BP Systolic BP Diastolic Pulse Ox Weight Weight: 220 lb 14.451 oz Body Mass Index (BMI) 39.1 Physical Exam Const alert and oriented x3 Chest inspection of chest normal Narrative: C/C/+1 Labs Labs Labs: Blood Type O POSITIVE Antibody Screen Pending Hct 37.9 % (37-47) Hgb 12.4 g/dL (12.0-15.0) Syphilis Total Ab Non-reactive Rubella IgG Antibody Reactive (Nonreactive) Hep Bs Antigen Non-Reactive (Nonreactive) Chlamydia DNA (JUNE) Negative (Negative) Neisseria gonorrhoeae DNA (JUNE) Negative (Negative) HIV 1&2 Antibody Non-Reactive (Nonreactive) See [facility] H&P Assessment & Plan (1) Labor, precipitous, delivered: COMMENT: &5 PLAN: Patient presented in labor. Had SROM and was complete. See delivery note. GBS negative Routine care
--- NOTE | 2021-12-16 12:21 | EX.PCM.OBRPT ---
Maternal Data Information Final NOHEMY: 12/25/21 Gestational age: 38&5 Vaginal Delivery Maternal Presentation Maternal Presentation: Active Labor Operative Information Date of Procedure: 12/16/21 Pre-Operative Diagnosis: Labor Post-Operative Diagnosis: Labor Surgery / Procedure Performed: Spontaneous Vaginal Delivery Type of Anesthesia: Local with 2% Lidocaine Estimated Blood Loss: 300ml Findings Description of Procedure: Patient draped when C/C/+2. She pushed well to deliver the head. head gently guided to allow delivery of anterior and posterior shoulders. No excess traction placed on head. Body delivered and 3VC clamped & cut in delayed fashion. Placenta delivered with gentle traction and good uterine tone obtained. Presentation: AYESHA Amniotic Membrane Rupture Type: Spontaneous Amniotic Fluid Description: Clear Placental Delivery Description: Expressed Placenta Disposition: [facility] Specimen(s) Removed: Placenta Cord Vessel Description: 3 Vessels Cord Entanglement: None A Gender: Female (Lori) (1 minute): 9 (5 minute): 10 Delayed Cord Clamping: Yes Post Vaginal Delivery Medications Given After Delivery: IV Pitocin Episiotomy Description: None Laceration: 1st degree (perineal - repaired with 3-0 vicryl) Complication Complications: None
[2021-12-16] MEDS: Acetaminophen 500 MG Tablet 1000 MG PO (12:51)
[2021-12-16] MEDS: Ibuprofen 600 MG Tablet PO ×2 (13:38→20:12)
[2021-12-16] MEDS: 0.9% Saline Lock 10 ML Syringe IV (14:58)
[2021-12-17 00:46] VITALS: BP 112/59; PULSE 76; RESP 16; TEMP 36.6; O2SAT 97
[2021-12-17 03:46] VITALS: BP 109/70; PULSE 83; RESP 18; TEMP 36.4; O2SAT 96
[2021-12-17 08:06] VITALS: BP 111/65; PULSE 68; RESP 16; TEMP 36.3; O2SAT 95
--- NOTE | 2021-12-17 08:46 | PCM.PN.BLA ---
Progress Note Patient seen at bedside. motor vehicle parts interpreter throughout visit. Patient with minimal support. Desires both breast and formula feeling once home. Denies any pain. Ambulating and voiding without difficulty. Desires discharge home today. Nexplanon prior to discharge. Physical Exam Const alert and no apparent distress General Appearance: cooperative and comfortable Exam Limitations: no limitations HEENT normocephalic Eyes General Eye: normal appearance of both eyes Neck full ROM General: normal visual inspection Chest Chest: symmetrical chest wall rise Resp normal respiratory effort and normal air movement Effort and Inspection: symmetric chest movement Auscultation: clear to auscultation bilaterally Cardio regular rate and regular rhythm GI normal to inspection, nondistended, normoactive bowel sounds Back/Spine normal ROM Extremity full ROM and no calf tenderness General Extremity: normal exam except as noted Skin no rashes or lesions noted Neuro CN's II-XII intact bilaterally Psych mental status grossly normal Assessment & Plan Assessment/Plan (1) (spontaneous vaginal delivery): (2) Care and examination of lactating mother: (3) Mongolian speaking patient: PLAN: Plan PPD 1 Routine care support Nexplanon placement prior to discharge home
--- NOTE | 2021-12-17 08:46 | EX.PCM.OBRPT ---
Assessment & Plan (1) Insertion of Nexplanon: Details Findings Description of Procedure: Longwall Machine Operator Helper utilized for signing of consent as well as procedure. Patient placed in supine position with left arm elevated up by head. Area cleaned and anesthetized with lidocaine spray. Insertion of Nexplanon under sterile technique sub cutaneously in left arm completed without incident. Steri strips and pressure dressing placed. Instructions to remove dressing after 24 hours and signs/symptoms of infection reviewed with patient.
--- NOTE | 2021-12-17 08:46 | PCM.DC ---
Discharge Instructions Diet Discharge Diet: No restrictions Activity Discharge Activity: Return to Normal Activity and May Shower May resume sexual activity in: 6-8 weeks Weight Bearing Status: Weight bearing as tolerated Dressing / Incision Call your doctor if you observe: Fever of 101 or Higher, Using more than 1 pad per hour, Dizziness, Chest pain, Calf discomfort and Uncontrolled pain Follow Up Care Please Follow Up With: Peri Chandler MD When: 2 weeks in office- Test Results: Test results from this visit will be discussed in further detail at your follow-up appointment, if applicable. Discharge Plan Admission Admit Date/Time: 12/16/21 11:35 Primary Reason for Your Visit: Labor and Delivery Attending Provider: Peri Chandler [facility] Orders/Prescriptions Prescriptions: Continued ferrous sulfate 325 mg (65 mg iron) tablet Label Comments: TAKE 1 TABLET BY MOUTH TWICE A DAY [facility]FA [] 28 mg iron- 800 mcg tablet PO Label Comments: TAKE 1 TABLET BY MOUTH EVERY DAY Discontinued aspirin 81 mg tablet,delayed release (DR/EC) Label Comments: TAKE 1 TABLET BY MOUTH EVERY DAY [facility] - Disposition Disposition (needs filled in before D/C Order can be placed): Home, Self Care
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
[2021-12-17] MEDS: Etonogestrel 68 MG IMPLANT SC (08:51)
[2021-12-17] MEDS: Ibuprofen 600 MG Tablet PO (09:01)
[2021-12-17 14:50] VITALS: BP 106/57; PULSE 86; RESP 16; TEMP 36.4; O2SAT 95
== END 2021-12-17 16:37 | disposition home or self-care (01) | DRG 807 ==
PROVIDERS: Admitting Provider Obstetrics & Gynecology; Visit Provider Obstetrics & Gynecology
DX: O42.92 Full-term premature rupture of membranes, unspecified as to length of time between rupture and onset of labor (principal); Z37.0 Single live birth; O62.3 Precipitate labor; O70.0 First degree perineal laceration during delivery; Z23 Encounter for immunization; Z3A.38 38 weeks gestation of pregnancy; Z30.46 Encounter for surveillance of implantable subdermal contraceptive; Z79.82 Long term (current) use of aspirin
CPT/HCPCS: 85025; 86850; 86900; 86901; 87426; 99218; A4216; G0378

== ENCOUNTER 2023-01-10 14:47 | Emergency (ER) | payer SELFPAY ==
[2023-01-10] VITALS (7 sets, daily range): BP systolic 101–140; BP diastolic 58–98; PULSE 61–73; RESP 16–17; TEMP 36.1–36.6; O2SAT 99–100; BMI 36.3
--- NOTE | 2023-01-10 15:36 | EDS_ITS ---
HPI HPI - GI History of Present Illness Chief Complaint: Foreign Body Detail of Chief Complaint: Chicken bone stuck in the esophagus. Informant: patient and other (By government guard accompanying the patient.) Abdominal Pain/Flank Pain Onset: Today and Hours Context: Sudden Onset Timing: Continuous Current Severity: Mild Maximum Severity: Mild Nausea/Vomiting/Emesis GI Symptom: Negative for Nausea or Vomiting Diarrhea/Melena/Hematochezia GI Symptom: Negative for Diarrhea Associated Symptoms Associated Symptoms: Negative for Dysuria or Frequency Narrative Narrative: 37-year-old female was seen past medical history. Prior cholecystectomy and appendectomy. Was eating chicken earlier today and believes she has a chicken bone stuck in her throat. No coughing. She is not short of breath. No choking. Initially went to [facility] emergency department they did a plain film.They spoke to their GI doctor who thought this may be his for ENT. Patient left the emergency department copies of the film. Prior similar symptoms: No Recent Illness/Hospitalization: No PFSH PFSH Medical History Acute pancreatitis Cholelithiasis Chronic cholecystitis Gallstone pancreatitis Gestational diabetes Labor, precipitous, delivered Migraine headache Obstructive jaundice Home Medications ferrous sulfate 325 mg (65 mg iron) tablet mg 12/16/21 [History Last Taken Unknown] vit no.95-ferrous fumarate 28 mg-folic acid 800 mcg tablet () tab PO ANEMIA 12/16/21 [History Last Taken Unknown] Allergy/AdvReac Type Severity Reaction Status Date / Time No Known Allergies Allergy Verified 01/10/23 14:50 Family History Daughter Liver cancer Cleft palate Surgical History History of laparoscopic appendectomy (~03/2020) Hx of cholecystectomy Social History Smoking Status: Never smoker ROS ROS ED ROS Narrative Denies any recent illness. Review of Systems ROS Unobtainable: Denies due to encephalopathy Constitutional Constitutional ED: Denies chills or fever(s) ENT ENT ED: Denies ear pain Cardiovascular Cardiovascular: Denies chest pain Respiratory/Chest Respiratory/Chest: Denies cough or dyspnea Gastrointestinal Gastrointestinal: Denies abdominal pain Genitourinary Genitourinary ED: Denies dysuria Musculoskeletal Musculoskeletal: Denies arthralgias Integumentary Denies abscess Neurologic Neurologic: Denies headache(s) Psychiatric Psychiatric: Denies anxiety Endocrine Endocrinology: Denies polydipsia Hematologic/Lymphatic Hematologic/Lymphatic: Denies easy bleeding Allergic/Immunologic Allergic/Immunologic ED: Denies mouth swelling or tongue swelling EXAM Physical Exam Narrative Exam Narrative: Well-appearing 37-year-old female no acute distress. Vital signs stable afebrile. Pulse ox 9 9% on room air no signs hypoxia. No respiratory distress nor coughing. HEENT exam unremarkable. Posterior pharynx unremarkable. No stridor or drooling. Neck nontender. Trachea midline. Lungs clear to auscultation bilaterally. Heart regular rhythm no murmur. Abdomen soft nontender normal bowel sounds no peritoneal signs. Extremities moves all 4. Calves nontender without edema or cords. Neurologically patient is awake and alert with no focal motor deficits. Const Vital Signs: 01/10/23 14:48 01/10/23 15:21 Temperature 97.8 F Temperature Source Temporal Pulse Rate 73 Respiratory Rate 16 Respiratory Effort Normal Respiratory Pattern Normal Blood Pressure 140/98 H Blood Pressure Mean 112 Pulse Ox 99 Oxygen Delivery Method Room Air Positive well nourished and well developed; Negative for obese, cachectic, contractures or unkempt General Appearance ED: well developed and NAD; Negative for unkempt, cachectic, contractures or pallor Nutritional Appearance: Negative for cachectic or obese HEENT Reports moist mucous membranes normocephalic and atraumatic; Negative for trauma or tenderness Eyes PERRL and EOMs intact bilaterally General Eye ED: Negative for pale conjunctiva or scleral icterus Neck no lymphadenopathy, supple and no JVD General: Negative for tenderness Carotids: Negative for other Lymph Lymphatic: Negative for other Resp normal respiratory effort and clear to auscultation bilaterally Effort and Inspection: Negative for respiratory distress Auscultation: Negative for rales, rhonchi or wheezes Cardio regular rate, regular rhythm, S1 normal heart sound, S2 normal heart sound and no murmurs Rate: Negative for bradycardia or tachycardic Rhythm: Negative for abnormal rhythm GI non-tender, non-distended and no masses Inspection: Negative for abdominal distention Auscultation: normoactive bowel sounds Palpation: soft; Negative for guarding Back/Spine no CVA tenderness General Back: Negative for CVA tenderness Cervical Spine: Negative for cervical spine tenderness Thoracic Spine / Upper Back: Negative for thoracic spinal tenderness Lumbar Spine / Lower Back: Negative for lumbar spinal tenderness Extremity full ROM General Extremety ED: Negative for edema or tenderness General Extremity: Negative for edema Neuro CN's II-XII intact bilaterally and moves all extremities Sensorium / Orientation: alert, oriented to person, oriented to place and oriented to time Motor Exam: strength 5/5 throughout Psych mental status grossly normal and thought process normal Appearance: Negative for unkempt Attitude: No agitated Mood & Affect: Negative for depressed Skin no wounds General Skin Exam: Negative for jaundice or pallor Lesions: no lesions Rashes: no rashes Trauma: Negative for abrasion Nails: Negative for discolored MDM MDM MDM Narrative Medical decision making narrative: 37-year-old speaking female accompanied by a male friend who is the government guard. Reportedly has a chicken bone stuck in her esophagus. They brought films with them from another emergency department. I will speak to GI about upper endoscopy. Patient currently is resting comfortably no distress. I spoke to Dr. Bebeto WILLIAMSON and he took the patient to endoscopy. History & Record Review Discussion w/independent historian: Patient and Friend Lab Data Attestation: I reviewed the patient's lab results. Lab results narrative: test negative. Requested per anesthesia. Labs: Laboratory Results - last 24 hr 01/10/23 17:26 Urine Test Negative Discharge Plan Triage Chief Complaint: Foreign Body ED Provider: Remy Turner Dx/Rx/DC Orders Clinical Impression: Esophageal foreign body, Pain on swallowing Prescriptions: No Action ferrous sulfate 325 mg (65 mg iron) tablet Patient Comments: TAKE 1 TABLET BY MOUTH TWICE A DAY WITH MEALS PNV cmb#95-ferrous fumarate-FA [] 28 mg iron- 800 mcg tablet PO Patient Comments: TAKE 1 TABLET BY MOUTH EVERY DAY Primary Care Provider: [facility] Claudia Moffett Referrals: [facility] Claudia Moffett [Primary Care Provider] - Disposition Disposition: Home, Self Care
--- NOTE | 2023-01-10 16:13 | CON.PCM.GI_ITS ---
HPI Consult Data Date of Consult: 01/10/23 HPI Narrative Reason for Consultation: Foreign body HPI Narrative: ASHLEE NI, is a 37 F who presents with no significant past medical history except for prior cholecystectomy and appendectomy. Was eating chicken earlier today and believes she has a chicken bone stuck in her throat. No coughing. She is not short of breath. No choking. Initially went to [facility] emergency department they did a plain film.They spoke to their GI doctor who thought this may be his for ENT. [facility] Medical History Acute pancreatitis Cholelithiasis Chronic cholecystitis Gallstone pancreatitis Gestational diabetes Labor, precipitous, delivered Migraine headache Obstructive jaundice Home Medications ferrous sulfate 325 mg (65 mg iron) tablet mg 12/16/21 [History Last Taken Unknown] vit no.95-ferrous fumarate 28 mg-folic acid 800 mcg tablet () tab PO ANEMIA 12/16/21 [History Last Taken Unknown] Allergy/AdvReac Type Severity Reaction Status Date / Time No Known Allergies Allergy Verified 01/10/23 14:50 Family History Daughter Liver cancer Cleft palate Surgical History History of laparoscopic appendectomy (~03/2020) Hx of cholecystectomy Social History Smoking Status: Never smoker ROS Review of Systems ROS Unobtainable: other Constitutional Constitutional: Denies fatigue, fever(s), poor appetite, weight gain or weight loss ENT HEENT: Denies mouth lesions Cardiovascular Cardiovascular: Denies abdominal bloating, abdominal edema or abdominal pain Respiratory/Chest Respiratory/Chest: Denies change in mental status, change in phlegm color, chest congestion or chest tightness Gastrointestinal Gastrointestinal: Denies belching, bloating, change in bowel habits, change in stool character, chewing difficulty, coffee ground emesis, constipation, cramping, diarrhea, dyspepsia, dysphagia, early satiety, excessive flatus, fecal incontinence, heartburn, hematemesis, hematochezia, hemorrhoids, loose stools, melena, nausea, odynophagia, rectal bleeding, tenesmus, vomiting or weight changes Genitourinary Genitourinary: Denies abdominal discomfort, burning urination or itching Musculoskeletal Musculoskeletal: Reports as per HPI; Denies muscle weakness or myalgias Integumentary Integumentary: Denies jaundice Neurologic Neurologic: Denies lack of coordination or weakness Psychiatric Psychiatric: Denies confusion, depression, memory loss, mood swings, paranoia or suicidal ideation Endocrine Endocrinology: Denies systems reviewed and no addt'l complaints, except as documented Hematologic/Lymphatic Hematologic/Lymphatic: Denies anemia, easy bleeding, easy bruising or lymphadenopathy Allergic/Immunologic Allergic/Immunologic: Denies systems reviewed and no addt'l complaints, except as documented Physical Exam Const alert and no apparent distress General Appearance: cooperative and comfortable Exam Limitations: no limitations HEENT normocephalic Eyes General Eye: normal appearance of both eyes Neck full ROM General: normal visual inspection Chest Chest: symmetrical chest wall rise Resp normal respiratory effort and normal air movement Effort and Inspection: symmetric chest movement Auscultation: clear to auscultation bilaterally Cardio regular rate and regular rhythm GI normal to inspection, nondistended, normoactive bowel sounds Back/Spine normal ROM Extremity full ROM and no calf tenderness General Extremity: normal exam except as noted Skin no rashes or lesions noted Neuro CN's II-XII intact bilaterally Psych mental status grossly normal Lab / Micro Data Labs: Laboratory Results - last 24 hr 01/10/23 17:26: Urine Test Negative Assessment & Plan Assessment/Plan (1) Esophageal foreign body: QUALIFIERS: Encounter type: initial encounter Qualified Code(s): T18.108A - Unspecified foreign body in esophagus causing other injury, initial encounter (2) Pain on swallowing: PLAN: Plan She will undergo an upper endoscopy to evaluate her upper GI tract for a foreign body. She was explained alternatives, risk, benefits including understanding bleeding, infection, sepsis, perforation, need for emergent and . She will have an ASA of 2.
[2023-01-10] MEDS: Lactated Ringers 1,000 ML 15 ML IV (17:41)
[2023-01-10 17:45] LABS: Internal QC Validated? YES +Cl - CLEAR BKGD; Pregnancy, Urine Negative Negative
--- NOTE | 2023-01-10 18:06 | OP.EGD_ITS ---
Patient Name: Get Ely Procedure Date: 01/10/2023 5:14 PM Date of : 1985 Age: 37 Procedure: Upper GI endoscopy Indications: Suspected ingestion of foreign body, Foreign body in the esophagus Providers: Broderick Tate DO Medicines: Monitored Anesthesia Care Patient Profile: This is a 37 year old female. Refer to note in patient chart for documentation of history and physical. Patient has symptoms of acute dysphagia. Complications: No immediate complications. Procedure: Pre-Anesthesia Assessment: - Prior to the procedure, a History and Physical was performed, and patient medications and allergies were reviewed. The risks and benefits of the procedure and the sedation options and risks were discussed with the patient. All questions were answered and informed consent was obtained. Patient identification and proposed procedure were verified by the physician in the pre-procedure area. Mental Status Examination: alert and oriented. Airway Examination: normal oropharyngeal airway and neck mobility. Respiratory Examination: clear to auscultation. CV Examination: normal. Prophylactic Antibiotics: The patient does not require prophylactic antibiotics. Prior Anticoagulants: The patient has taken no anticoagulant or antiplatelet agents. ASA Grade Assessment: II - A patient with mild systemic disease. After reviewing the risks and benefits, the patient was deemed in satisfactory condition to undergo the procedure. The anesthesia plan was to use monitored anesthesia care (MAC). Immediately prior to administration of medications, the patient was re-assessed for adequacy to receive sedatives. The heart rate, respiratory rate, oxygen saturations, blood pressure, adequacy of pulmonary ventilation, and response to care were monitored throughout the procedure. The physical status of the patient was re-assessed after the procedure. After obtaining informed consent, the endoscope was passed under direct vision. Throughout the procedure, the patient's blood pressure, pulse, and oxygen saturations were monitored continuously. The Endoscope was introduced through the mouth, and advanced to the second part of duodenum. The upper GI endoscopy was accomplished without difficulty. The patient tolerated the procedure well. Scope In: Scope Out: 6:02:04 PM Findings: The examined esophagus was normal. The entire examined stomach was normal. The second portion of the duodenum was normal. Impression: - Normal esophagus. - Normal stomach. - Normal second portion of the duodenum. - No specimens collected. Recommendation: - Return to normal activities tomorrow. - Resume previous diet. - Continue present medications. Procedure Code(s): --- Professional --- 55028, Esophagogastroduodenoscopy, flexible, transoral; diagnostic, including collection of specimen(s) by brushing or washing, when performed (separate procedure) CPT copyright 2021 [employer]. All rights reserved. The codes documented in this report are preliminary and upon press and blow machine tender review may be revised to meet current compliance requirements. Broderick Tate DO 01/10/2023 6:06:09 PM This report has been signed electronically. Number of Addenda: 0 Note Initiated On: 01/10/2023 5:14 PM
--- NOTE | 2023-01-10 18:07 | OP.CCLET_ITS ---
01/10/2023 Claudia Trevino [facility] Re : [facility] This procedure was performed on Tuesday, January 10, 2023. My impressions and recommendations are as follows: Impressions : - Normal esophagus. - Normal stomach. - Normal second portion of the duodenum. - No specimens collected. Recommendations : - Return to normal activities tomorrow. - Resume previous diet. - Continue present medications. My findings are described in the full procedure note, which is enclosed. If I can be of further assistance, please feel free to contact me at . Sincerely, Broderick Tate, 01/10/2023 6:06:09 PM This report has been signed electronically.
== END 2023-01-10 18:36 | disposition home or self-care (01) ==
PROVIDERS: Anesthesiology; Internal Medicine Gastroenterology; Emergency Provider Emergency Medicine; Visit Provider Emergency Medicine
PROC: 0DJ08ZZ Inspection of Upper Intestinal Tract, Via Natural or Artificial Opening Endoscopic (ICD-10-PCS; CPT 43235; principal; 2023-01-10 17:00)
DX: T18.108A Unspecified foreign body in esophagus causing other injury, initial encounter (principal); X58.XXXA Exposure to other specified factors, initial encounter; Z80.0 Family history of malignant neoplasm of digestive organs
CPT/HCPCS: 43235; 81025; 99284; J7120; J2405

== ENCOUNTER 2023-08-21 03:27 | Emergency (ER) | payer SELFPAY ==
[2023-08-21 03:30] VITALS: BP 146/61; PULSE 71; RESP 16; TEMP 36.1; O2SAT 100; BMI 36.0
[2023-08-21 03:32] VITALS: BP 146/61; PULSE 70; RESP 16; TEMP 36.5; O2SAT 100
--- NOTE | 2023-08-21 03:43 | EDS_ITS ---
HPI HPI - GI History of Present Illness Chief Complaint: Abd Pain Informant: patient and spouse/S.O. Narrative Narrative: Here with spouse evaluation suprapubic discomfort intermittent over the last 2 to 3 days. Burning with urination for last 2 days. No fevers or back pain. No nausea or vomiting. Appendectomy and cholecystectomy in the past. Took ibuprofen at 3 PM which did help symptoms however symptoms returned this evening. Prior similar symptoms: Yes PFSH PFSH Medical History Acute pancreatitis Cholelithiasis Chronic cholecystitis Gallstone pancreatitis Gestational diabetes Labor, precipitous, delivered Migraine headache Obstructive jaundice Home Medications cephalexin 500 mg capsule 500 mg PO Q12 #14 CAPSULES 08/21/23 [Rx Last Taken Unknown] phenazopyridine 200 mg tablet (Pyridium) 200 mg PO TID #10 tabs 08/21/23 [Rx Last Taken Unknown] Allergy/AdvReac Type Severity Reaction Status Date / Time No Known Allergies Allergy Verified 08/21/23 03:29 Family History Daughter Liver cancer Cleft palate Surgical History History of laparoscopic appendectomy (~03/2020) Hx of cholecystectomy Social History Smoking Status: Never smoker ROS ROS ED Constitutional Constitutional ED: Denies chills, fever(s) or sweats Eyes Eyes: Denies change in vision ENT ENT ED: Denies dysphagia or sore throat Cardiovascular Cardiovascular: Denies chest pain, leg edema, palpitations or racing heartbeat Respiratory/Chest Respiratory/Chest: Denies cough, dyspnea or dyspnea on exertion Gastrointestinal Gastrointestinal: Reports abdominal pain; Denies diarrhea, nausea or vomiting Genitourinary Genitourinary ED: Reports dysuria; Denies hematuria or urinary frequency Musculoskeletal Musculoskeletal: Denies back pain, extremity pain or neck pain Integumentary Denies rash or wounds Neurologic Neurologic: Denies headache(s), paresthesias or weakness EXAM Physical Exam Const Vital Signs: 08/21/23 03:30 08/21/23 03:32 08/21/23 04:57 Temperature 97 F L 97.7 F L 98.4 F Temperature Source Temporal Temporal Pulse Rate 71 70 70 Respiratory Rate 16 16 16 Blood Pressure 146/61 H 146/61 H 138/76 H Blood Pressure Mean 89 89 96 Pulse Ox 100 100 99 Positive well nourished and well developed General Appearance ED: well developed and NAD HEENT Reports moist mucous membranes normocephalic and atraumatic Eyes PERRL, EOMs intact bilaterally and conjunctivae normal General Eye ED: Yes normal appearance of both eyes Neck no lymphadenopathy and supple General: Negative for tenderness Chest Wall Chest: Negative for tenderness Resp normal respiratory effort and normal air movement Effort and Inspection: symmetric chest movement; Negative for respiratory distress Cardio regular rate, regular rhythm and no murmurs Peripheral Pulses: pulses 2+ throughout GI normal to inspection, nondistended, normoactive bowel sounds GI Narrative: Suprapubic tenderness without guarding or rebound. Palpation: Negative for guarding or rebound tenderness present Back/Spine no CVA tenderness and no thoracic nor lumbar tenderness Extremity normal to inspection General Extremety ED: Negative for edema or tenderness General Extremity: Negative for edema Neuro oriented x3 and no sensory deficits noted Sensorium / Orientation: awake and alert Skin no rashes or lesions noted and no wounds MDM MDM MDM Narrative Medical decision making narrative: Interventions / MDM: Differential diagnosis: UTI Diagnosis considered but do not suspect: No clinical colitis, hCG negative therefore no or ectopic concerns. My EKG interpretation: N/A Imaging independently reviewed and interpreted by myself: N/A External documents reviewed: N/A Test considered but not ordered:N/A ED course: Patient suprapubic pain with dysuria. No fevers or back pain. Tylenol, Pyridium started UA ordered. 0430: UA with findings of infection. Culture sent. She started on Keflex. Continue Pyridium and Keflex. Outpatient follow-up. Re-evaluation: stable Disposition discussed with patient/family/significant other: Patient and significant other. Case discussed with consulting clinician: N/A This note was generated with [employer] dictation software. It may contain incorrect words, spelling, and punctuation that were not noted in checking the note before signing. Lab Data Attestation: I reviewed the patient's lab results. Labs: Laboratory Results - last 24 hr 08/21/23 04:13 Urine Color Yellow Urine Clarity Cloudy Urine pH 7.0 Ur Specific [place] 1.015 Urine Protein 500 H Urine Glucose (UA) Normal Urine Ketones 5 H Urine Occult Blood 150 H Urine Nitrite Negative Urine Bilirubin Negative Urine Urobilinogen Normal Ur Leukocyte Esterase 500 H Urine RBC 0 SEEN Urine WBC 50-100 SEEN Ur Squamous Epith Cells 5-10 SEEN Ur Transition Epith Cell 0-5 SEEN Urine Bacteria RARE Urine Mucus 0 SEEN Urine Test Negative Discharge Plan Triage Chief Complaint: Abd Pain ED Provider: Luis Sánchez Dx/Rx/DC Orders Clinical Impression: Urinary tract infection, Dysuria, Abdominal pain, suprapubic Instructions: Urinary Tract Infections in Women Prescriptions: New phenazopyridine [Pyridium] 200 mg tablet 200 mg PO TID Qty: 10 0RF cephalexin [cephalexin] 500 mg capsule 500 mg PO Q12 Qty: 14 0RF Primary Care Provider: Care Physician,Silvia [facility]-2 Weeks Activity Restrictions/Additional Instructions: Urine with infection. Urine culture sent. Take and finish antibiotic as prescribed. Pyridium to help with symptom control. Follow-up with your doctor. If symptoms worsen or develop fevers or back pain. Return to the ED for reevaluation. Disposition Disposition: Home, Self Care Discharge Date/Time: 08/21/23 04:59
[2023-08-21] MEDS: Phenazopyridine 95 MG Tablet 190 MG PO (04:11)
[2023-08-21] MEDS: Acetaminophen 500 MG Tablet 1000 MG PO (04:11)
[2023-08-21 04:19] LABS: Mucous, Urine 0 SEEN /hpf (<or=2+); Red Blood Cells-Urine 0 SEEN /hpf (0-5)
[2023-08-21 04:21] LABS: Color, Urine Yellow (Yellow); Glucose, Dipstick Normal (Normal); Ketone-Dipstick 5 mg/dl (Negative); Leukocyte Esterase-Dipstick 500 /ul (Negative); Nitrite-Dipstick Negative (Negative); Occult Blood-Urine 150 /ul (Negative); Protein-Dipstick 500 mg/dl (Negative); Specific Gravity, Urine 1.015 (1.002-1.030); Urine Bilirubin Dipstick Negative (Negative); Urine Clarity Cloudy (Clear); Urine Urobilinogen Normal (Normal)
[2023-08-21 04:24] LABS: Internal QC Validated? YES +Cl - CLEAR BKGD; Pregnancy, Urine Negative Negative
[2023-08-21 04:29] LABS: Bacteria RARE /hpf (None Seen); Squamous Epithelial Cells - UA 5-10 SEEN /hpf (5-10); Transitional Epithelial - Ur 0-5 SEEN /hpf (0-5); White Blood Cells 50-100 SEEN /hpf (0-5)
[2023-08-21 04:57] VITALS: BP 138/76; PULSE 70; RESP 16; TEMP 36.9; O2SAT 99
[2023-08-21] MEDS: Cephalexin 250 MG Capsule 500 MG PO (04:57)
== END 2023-08-21 04:59 | disposition home or self-care (01) ==
PROVIDERS: Emergency Provider Emergency Medicine; Visit Provider Emergency Medicine
DX: N39.0 Urinary tract infection, site not specified (principal); R30.0 Dysuria; R10.9 Unspecified abdominal pain
CPT/HCPCS: 81001; 81025; 87077; 87086; 87088; 87186; 99284